=== PATIENT | female | born 1950 | race Caucasian/White ===

== ENCOUNTER 2019-01-10 09:31 | Outpatient (CLI) | payer BC, SELFPAY ==
--- NOTE | 2019-01-10 09:20 | DI.RAD_ITS ---
SYMPTOM/DIAGNOSIS: BILAT KNEE PAIN RIGHT KNEE: Three views were obtained. There is marked narrowing of the medial tibiofemoral cartilaginous joint space. There are very prominent hypertrophic changes of the bones of the knee most marked medially. There is subchondral sclerosis and bony remodeling of the femur and tibia at the tibiofemoral joint. CONCLUSION: Severe DJD most prominent involving medial tibiofemoral joint. Mild varus angulation noted. LEFT KNEE: Three views were obtained. There is medial femoral subluxation on the tibia with virtually complete loss of the cartilaginous joint space of the medial tibiofemoral joint. Exuberant hypertrophic spurring is noted involving all joints of the knee. CONCLUSION: Severe DJD most prominent involving medial tibiofemoral joint.
== END 2019-01-10 09:51 ==
PROVIDERS: PCP Nurse Practitioner Family; Visit Provider Student in an Organized Health Care Education/Training Program
DX: M25.562 Pain in left knee (principal); M25.561 Pain in right knee; M17.0 Bilateral primary osteoarthritis of knee; M21.161 Varus deformity, not elsewhere classified, right knee
CPT/HCPCS: 73562

== ENCOUNTER 2019-04-01 11:05 | Outpatient (REF) | payer BC, SELFPAY ==
[2019-04-01 20:35] LABS: HCT 40.7 % (36.0-46.0); HGB 13.6 g/dL (12.0-15.5); Mean Corp. HGB Concentration 33.4 g/dL (32.0-36.0); Mean Corpuscular Hemoglobin 30.1 pg (27.0-33.0); Platelet Count 252 x1000/uL (130-400); RBC 4.52 m/cumm (4.00-5.20); RBC Distribution Width 13.4 % (11.7-14.6); White Blood Cell Count 6.09 k/cumm (4.4-10.8)
[2019-04-01 20:37] LABS: ALT 36 U/L (12-78); AST 20 U/L (15-37); Albumin 3.6 g/dL (3.4-5.0); Alkaline Phosphatase 67 U/L (46-116); Anion Gap 9.1 mmol/L (3-11); BUN 26 mg/dL (7-18); Bilirubin, Total 0.4 mg/dL (0.2-1.0); CO2 26.9 mmol/L (21.0-32.0); CREATININE 1.08 mg/dL (0.55-1.02); Calcium 8.9 mg/dL (8.5-10.1); Calculated LDL 93 mg/dL; Chloride 105 mmol/L (98-107); Cholesterol 171 mg/dL (50-200); Glucose 93 mg/dL (70-100); HDL Cholesterol 54 mg/dL (40-60); Potassium 4.3 mmol/L (3.5-5.1); Sodium 141 mmol/L (136-145); Total Protein 6.6 g/dL (6.4-8.2); Triglyceride 124 mg/dL (30-150)
== END 2019-04-01 11:25 ==
LOC: NCHCN 11:05
PROVIDERS: PCP Nurse Practitioner Family; Visit Provider Nurse Practitioner Family
DX: E78.5 Hyperlipidemia, unspecified (principal); I10 Essential (primary) hypertension
CPT/HCPCS: 80053; 80061; 83721; 85027

== ENCOUNTER 2019-04-06 13:21 | Outpatient (CLI) | payer BC, SELFPAY ==
--- NOTE | 2019-04-06 11:18 | DI.RAD_ITS ---
SYMPTOMS/DIAGNOSIS: OA PONCE KNEE LEG LENGTH STUDY: The left leg measures 83 cm. The right leg measures 84 cm. Severe DJD involving both knees is demonstrated.
== END 2019-04-06 13:41 ==
PROVIDERS: PCP Nurse Practitioner Family; Visit Provider Physician Assistant
DX: M17.0 Bilateral primary osteoarthritis of knee (principal); M21.70 Unequal limb length (acquired), unspecified site
CPT/HCPCS: 77073

== ENCOUNTER 2019-05-27 09:51 | Outpatient (CLI) | payer BC, MEDICARE, SELFPAY ==
[2019-05-27 11:10] LABS: HCT 41.6 % (36.0-46.0); Mean Corp. HGB Concentration 33.7 g/dL (32.0-36.0); Mean Corpuscular Hemoglobin 29.8 pg (27.0-33.0); Mean Corpuscular Volume 88.5 fL (80-95); Mean Platelet Volume 9.9 fL (8.0-11.0); Platelet Count 272 x1000/uL (130-400); White Blood Cell Count 6.64 k/cumm (4.4-10.8)
[2019-05-27 11:52] LABS: Anion Gap 13.8 mmol/L (3-11); BUN 27 mg/dL (7-18); CO2 25.2 mmol/L (21.0-32.0); CREATININE 1.18 mg/dL (0.55-1.02); Calcium 9.2 mg/dL (8.5-10.1); Chloride 100 mmol/L (98-107); Estimated GFR 45.69 (mL/min/1.73m2); Glucose 100 mg/dL (70-100); Potassium 4.3 mmol/L (3.5-5.1); Sodium 139 mmol/L (136-145)
--- NOTE | 2019-05-29 15:52 | W.PREOPHP ---
Date of service: 05/27/19 Assessment and Plan Assessment and plan (1) Left knee DJD: Status: Chronic Assessment and plan: Left total knee replacement. Details of surgery were discussed with patient as well as risks and pertinent anatomy. All questions were answered. She also will likely undergo a right total knee replacement a few weeks after her left knee replacement when she has recovered. Qualifiers: Osteoarthritis type: primary Qualified Code(s): M17.12 - Unilateral primary osteoarthritis, left knee History of Present Illness History of Present Illness Chief Complaint: Left knee pain Narrative: María is a 69-year-old female who comes in today for a history and physical for a left total knee replacement. She has severe arthritis of both knees, but her left is worse than her right. She has been treated with injection therapy, but this only provided very good relief for a few weeks. She has problems with ambulation, as well as getting up from a seated position. She also struggles pretty significantly with going up and down stairs. On x-ray, she has severe arthritis with complete loss of joint space especially in the medial side of both knees. Her left knee even on x-ray is worse than her right. At this point since conservative therapy is not helping including injections, she would like to move forward with a left total knee replacement, and hopefully a right total knee replacement in the near future. Pertinent Surgical Information María does state that she has stage III kidney disease on her problem list, but this is only due to high lab values noticed by her PCP. At this point the diagnosis was placed there by her PCP in order to remind them to keep an eye on her kidney function. According to the patient this is not confirmed kidney failure at this time. Patient denies history of CVA, NH, angina, asthma, COPD, liver disorders, hepatitis, bleeding disorders, diabetes, immune or thyroid disorders. No complications from anesthesia. Review of Systems Constitutional Constitutional: Denies fever(s) ENT Ears, Nose, Mouth, and Throat: Denies dizziness and Denies sore throat Cardiovascular Cardiovascular: Denies chest pain, Denies palpitations and Denies dyspnea Respiratory Respiratory: Denies cough and Denies dyspnea Gastrointestinal Gastrointestinal: Denies abdominal pain, Denies melena, Denies hematochezia, Denies diarrhea, Denies nausea and Denies vomiting Genitourinary Genitourinary: Denies hematuria and Denies dysuria Neurologic Neurologic: Denies dizziness Endocrine Endocrine: Denies palpitations PFSH Medical History Depression GERD (gastroesophageal reflux disease) (Chronic) History of alcoholism HTN (hypertension) Obesity Surgical History Colonoscopy - MAC (02/16/17) Hx of dilation and curettage (Acute) Hx of knee surgery (Acute) Right knee Hx of tonsillectomy (Chronic) Hx of tubal ligation (Chronic) Social History Smoking/Tobacco Use Status: Never Drug use: Never Current gender identity: female Meds Home Medications and Allergies Home Medications Medication Instructions Recorded Confirmed Type diclofenac-misoprostol [Arthrotec 1 ea PO TID 02/10/17 05/27/19 History 75] lisinopril 10 mg PO DAILY tab-cap 02/10/17 05/27/19 History pantoprazole 20 mg PO DAILY tab-cap 02/10/17 05/27/19 History simvastatin 80 mg PO DAILY 02/10/17 05/27/19 History zolpidem [Ambien Cr] 10 mg PO HS tab-cap 02/10/17 05/27/19 History hydrochlorothiazide 25 mg tablet 25 mg PO DAILY 01/10/19 05/27/19 History ibuprofen [Advil] 600 mg PO Q6H PRN 05/27/19 05/27/19 History Allergies Allergy/AdvReac Type Severity Reaction Status Date / Time No Known Drug Allergies Allergy Verified 05/27/19 08:58 Exam [facility] Head: normocephalic and atraumatic General nose exam: no nasal discharge Throat: uvula midline and no uvular edema Other: soft palate rises symmetrically, no erythema Eyes Conjunctivae: conjunctivae normal Sclera: sclerae normal Pupils: PERRL Resp Effort & Inspection: normal respiratory effort Auscultation: clear to auscultation bilaterally and no wheezes Cardio Rate: regular rate Rhythm: regular rhythm Heart Sounds: S1 normal, S2 normal and no murmurs GI Palpation: soft, no hepatosplenomegaly and nontender Auscultation: normal bowel sounds Results Labs Result diagrams: 05/27/19 10:58 05/27/19 10:58
== END 2019-05-27 10:11 ==
PROVIDERS: PCP Nurse Practitioner Family; Visit Provider Student in an Organized Health Care Education/Training Program
DX: M25.562 Pain in left knee (principal); M17.12 Unilateral primary osteoarthritis, left knee; Z01.812 Encounter for preprocedural laboratory examination; Z01.818 Encounter for other preprocedural examination; I10 Essential (primary) hypertension; K21.9 Gastro-esophageal reflux disease without esophagitis
CPT/HCPCS: 36415; 80048; 85027; NC

== ENCOUNTER 2019-05-31 08:02 | Inpatient (IN) | payer BC, MEDICARE, SELFPAY ==
[2019-05-27 10:16] VITALS: BP 135/80; PULSE 66; RESP 16; TEMP 36.5; O2SAT 96
[2019-05-31] VITALS (13 sets, daily range): BP systolic 89–137; BP diastolic 56–76; PULSE 50–73; RESP 8–20; TEMP 35.3–36.7; O2SAT 94–99
[2019-05-31] MEDS: Gabapentin 300 MG CAP PO (08:35)
[2019-05-31] MEDS: Lactated Ringers 1,000 ML 80 ML IV ×2 (08:36→16:05)
[2019-05-31] MEDS: Celecoxib 200 MG CAP 400 MG PO (08:36)
[2019-05-31] MEDS: Acetaminophen 500 MG TAB 1000 MG PO ×3 (08:36→19:50)
[2019-05-31] MEDS: Bupivacaine 0.25% Pres-Free 30 ML VIAL ×2 (09:20→11:27)
[2019-05-31] MEDS: ceFAZolin 3,000 MG in Normal Saline 100 ML 200 MG IVPB (09:48)
[2019-05-31] MEDS: Normal Saline 20 ML VIAL (11:27)
[2019-05-31] MEDS: Ketorolac 30 MG/ML VIAL (11:27)
[2019-05-31] MEDS: Bupivacaine LIPOSOME/PF 133 MG/10 ML VIAL IJ (11:27)
--- NOTE | 2019-05-31 16:04 | IN_ITS ---
Date of service: 05/30/19 Time of Service: 14:32 PT Notes Inpatient Physical Therapy Evaluation Date: 05/31/2019 Referring Doctor: Gunnar Purvis MD PT Orders: PT CONSULT: Limited ability Precautions: Fall. Standard. WBAT on left LE. Patient Profile/Admitting Diagnosis: Patient is a 69-year-old female with primary unilateral osteoarthritis S/P L knee total arthroplasty on POD 0. PMHX: Medicall History Depression GERD (gastroesophageal reflux disease) (Chronic) History of alcoholism HTN (hypertension) Obesity Surgical History Colonoscopy - MAC (02/16/17) Hx of dilation and curettage (Acute) Hx of knee surgery (Acute) Right knee Hx of tonsillectomy (Chronic) Hx of tubal ligation (Chronic) Social History/Home Situation: Patient lives with in a one floor house with three steps to enter and a rail on the right side going up. She also has 6 steps to negotiate to reach the living room of her house with B rails. She is indepen dent with all aspects of ADLs without the need for an AD or adaptive equipment. 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 Equipment Owned/DME: [facility] Subjective: Patient is agreeable to a PT consult. She reports being lightheaded during ambulation activity. She states that she has enough family members who will be able to help once she goes home. She denies any headache, chest pain, and nausea during mobility. She looks forward to going back to work once she is cleared to do so. Objective: General Observation: Patient is seen resting in bed in conversation with her daughter and grandaughters upon arrival of student PT and TRIPLE DRUM OPERATOR. Cryocuff on L knee. IV in L UE. CHLOE wraps on L knee. TEDS on R leg. Grace catheter in place. Mental Status: Alert and oriented x 4 as to person, place, time, and purpose Pain: 2/10 at rest and with movement and weight bearing ROM: Right Lower Extremity: Hip flexion WFL. Hip abduction WFL. Knee flexion WFL. Ankle dorsiflexion WFL. Ankle plantarflexion WFL. Left Lower Extremity: Hip flexion WFL. Hip abduction WFL. Knee flexion allolws up to 75 degrees in standing. Ankle dorsiflexion WFL. Ankle plantarflexion WFL. Strength: Right Lower Extremity: Hip flexors 5/5. Hip abductors 5/5. Knee flexors 5/5. Knee extensors 5/5. Ankle dorsiflexors 5/5. Ankle plantarflexors 5/5. Left Lower Extremity:Hip flexors 4/5. Hip abductors 5/5. Knee flexors 4/5. Knee extensors 4/5. Ankle dorsiflexors 5/5. Ankle plantarflexors 5/5. Sensation: Intact as to pain and pressure on bilateral lower extremities. Bed Mobility/Transfers: Rolling SBA Supine to sit SBA Sit to supine SBA Sit to stand CGA Stand to sit CGA Bed to chair CGA Chair to bed CGA Gait: Patient was able to tolerate level surface ambulation of about 60 feet without rest using the FWW with CGA of student PT and SBA of PT for IV pole management and wheelchair follow. Patient did complain of mild lightheadedness that subsided with rest. Balance: Static Sitting: Normal Dynamic Sitting: Normal Static Standing: Fair Dynamic Standing: Fair Special Tests: Mobility Limitations Standardized Measure [facility]-P[facility] 6 clicks Basic Mobility Inpatient Short Form: Raw Score: 17 CMS Score: 51% deficit Informed Consent/Education: Patient instructed in purpose of PT consult and plan of care. She was also instructed on muscle setting exercises for gluteal and quadriceps on B sides along with ankle pumping to be done every hour. Assessment: 69-year-old female with primary unilateral osteoarthritis S/P L knee total arthroplasty on POD 0. Patient presents with clinical signs and symptoms consistent with current/admitting diagnoses that have resulted to mobility limitations, gait instability, generalized weakness, and impairment of motor control as demonstrated by the following impairment level findings: 1. Decreased strength to L LE major muscle groups 2. Impaired sitting/standing balance 3. Impaired activity tolerance 4. Limitation of joint range of motion in L knee Impairments are contributing to the following functional limitations: 1. Dependent bed mobility skills 2. Increased dependence with transfers 3. Inability to safely ambulate without assistive device and physical assistance 4. Increase completion time for mobility ADL performance 5. Increased fall risk 6. Inability to negotiate steps alone safely Patient is assessed as a [id number] moderate complexity based on the following: History: Patient is a 69-year-old female patient with primary unilateral osteoarthitis of L knee S/P L knee total arthroplasty on POD 0. Examination: Demonstrable impairment in strength, balance, and range of motion with underlying impairments and functional limitations as documented above Presentation:Evolving Decision Makin moderate complexity Goals: Goals X1 week 1. Supine-Sit independent 2. Sit-Supine independent 3. Sit-Stand independent 4. Stand-Sit independent 5. Bed-Chair independent 6. Chair-Bed independent 7. Independent gait on level surface with use of least restrictive device for at least 300 feet without report of pain nor dyspnea 8. Independent stair negotiation while holding onto bilateral rails for at least 10 steps without report of pain nor dyspnea 9. Independent with home exercise program 10. Good static and dynamic standing balance/tolerance Plan of Care/Treatment Plan: 1-2x/day, 7 days/week x 1 week. Plan of care has been reviewed with the TRIPLE DRUM OPERATOR providing the service under Physical Therapy direction. Initiate Physical Therapy intervention for strengthening, bed mobility, transfers, gait, stairs, balance training, use of assistive device. DISCHARGE RECOMMENDATIONS: May benefit from skilled physical therapy services according to orthopedic surgeon's timeline recommendations. Patient will be educated and trained on home exercise program per TKA exercise protocol in preparation for outpatient physical therapy services. TREATMENT CODE/TIME: 9716 2 x 34 minutes beginning at 14:32 PM. Thank you very much for this referral. Darlin Comer PT, DPT, CLT [facility]
[2019-05-31] MEDS: oxyCODONE 5 MG TAB PO ×3 (16:28→21:39)
--- NOTE | 2019-05-31 16:43 | ROE_ITS ---
Date of service: 05/31/19 Time of Service: 13:43 Operative Note Operative Note DATE OF PROCEDURE: 05/31/19 PRE-OP DIAGNOSIS: Left Knee DJD with deformity POST-OP DIAGNOSIS: same PROCEDURE: Left Total Knee Arthroplasty with Intraoperative Navigation SURGEON: Gunnar Purvis SURGICAL APPLIANCES SALESPERSON: Nilda Marquez ANESTHESIA: regional and spinal ESTIMATED BLOOD LOSS: 350 PATHOLOGY: none sent TOURNIQUET TIME: 35 COMPLICATIONS: None Patient was transported to: PACU Patient's condition: stable Implants: 1. Depuy Attune Posterior Stabilized Femoral Component, Size 7 2. Depuy Attune Fixed Platform Tibial Component, Size 5 3. Depuy Attune 7 x 14 fixed, Stabilized Poly 4. Depuy Attune Patellar Component, Size 38 Indications: I have seen María in clinic for symptoms of knee arthritis, confirmed with radiographic findings. She has exhausted nonoperative methods and was having significant limitations in daily function and desired better function and less pain. I discussed the technical details of a knee replacement. I explained the risks of the procedure to include, but not limited to, bleeding, infection, pain, stiffness, fracture, damage to nerves and vessels, damage to muscles and tendons, loosening, need for repeat procedure, blood clot and cardiopulmonary demise. Despite these risks, she elected to proceed. Findings: There was significant signs of arthritis throughout the knee. There was notable deformity of the medial tibia sloping even more medial than expected. Large osteophytes were encountered throughout all compartments of the knee especially medially and posteriorly. Procedure Description: María was greeted in the preoperative holding area where the correct side was identified and marked. The consent was reviewed with the patient and signed. The history and physical was updated. All questions were answered. Preoperative mediacations were administered: Acetaminophen 1000mg, Celebrex 400mg, and gabapentin 300mg. An adductor canal block was then administered by the anesthesia team in the PACU. María was taken back to the operating room. A spinal anesthestic was then administered. The patient was placed into the supine position on the operating room table. A nonsterile tourniquet was placed high onto the leg but only used for cementing. Posts were placed for positioning during the procedure. All bony prominences were well padded. Prophylactic antibiotics in the form of cefazolin were administered. 1g of Tranxemic Acid was given intravenously within 30 minutes of incision. The left leg was then prepped with Chloraprep and draped in a standard fashion with impervious stockinette and extremity drape with Iodine impregnated skin protection. A timeout to confirm correct identity, side and site, procedure, allergies, anesthesia, and medical concerns was performed. With the knee in some flexion, a midline incision was made overlying the knee. Full thickness skin flaps were raised once the extensor mechanism was encountered. These were raised medially and laterally. Any bleeding was controlled with electrocautery. Once the extensor mechanism was fully exposed, a medial parapatellar arthrotomy was performed in a flexed position. All bleeding from the arthrotomy and the geniculate arteries was coagulated. A medial subperiosteal peel was performed with electrocautery to the midcoronal plane. Due to the significant varus deformity the entire medial tibial plateau was exposed. The fat pad was removed while keeping the patellar tendon protected. The anterior distal femur synovium was removed for later visualization. The ACL and PCL were resected and the anterior horn of the lateral meniscus was transected. The knee was then flexed with the patella everted. Large osteophytes from the tibia were removed. Large osteophytes from the femur were removed. A single starting pin was then placed 1cm anterior to the PCL insertion and the notch in the direction of the femoral head. The OrthoAlign device was applied over the pin. It was oriented to be in line with the epicondylar axis and the trochlear groove. It was then pinned into place. The navigation computer was then turned on and calibrated. The distal femur cut was set at 0 degrees varus/valgus and 2.5 degrees flexion. The distal femur cutting guide then was positioned for a 11 mm cut. The distal femur was cut with an oscillating saw while protecting the soft tissues. The tibia was then addressed. The OrthoAlign device was placed over the tibial tubercle and medial tibia and secured into position. Once again, OrthoAlign was calibrated and then set for a 0 degree varus/valgus cut and 3 degrees of posterior slope. With this locked into position, the cut thickness stylus was used to assess cut thickness. The medial side, most involved side, was set for a 3mm cut. This was then held in position and pinned into place with 2 additional pins and a cross pin for stability. The medial and lateral collateral ligaments were protected and the cut was performed. With this completed, it was assessed and noted to be of appropriate dimensions. It was thicker laterally and I had initially planned but seem to adequately re-create the parallel surface of the tibia to match the mechanical axis perpendicularly. The guide and OrthoAlign was removed. A spacer block was inserted and the knee was brought into extension. The 12 mm spacer block provided full extension, without hyperextension and with stability of both the medial and lateral collateral ligaments was assessed. The pins from the femur and the tibia were then removed. The distal femur was then sized. The anterior stylus was placed onto the lateral ridge of the anterior femur. This indicated a size 7 femur. The external rotation of the guide was adjusted to 3 degrees to match the epicondylar axis, perpendicular to [place]s line. The 4-in-1 cutting guide was the placed. The posterior medial femur cut was evaluated and appeared of good thickness. The spacer block was inserted underneath the cutting guide and stability was confirmed in 90 degrees of flexion. An tima wing was used to confirm appropriate position of the anterior cut to avoid notching. This cutting guide was ensured to be flush on the cut surface and then pinned into place with headed pins. While protecting the soft tissues, quad tendon, and collateral ligaments, the anterior and posterior cuts were performed with a saw. The central two pins were removed and the posterior and anterior chamfers were cut next. The notch-cutting guide was placed. This was pinned to lateralize the femoral component as much as possible while keeping it flush on the cut surface. This was then pinned into position. A reciprocating saw was used to make the notch cut. A rasp smoothed the cut surfaces. A trial posterior stabilized femoral component was then inserted, impacted down to the cut surfaces, and the lug holes were drilled. A provisional trial tibial component was placed and the knee was brought through range of motion. There was noted to be excellent extension with some very mild gapping medially and laterally in flexion and extension. Terminal flexion was limited by calf thigh impingement at about 115 degrees. The patella was tracking without thumbs. The tibial cut surface was fully exposed. The medial and lateral menisci were removed. The tibia was then sized as a 5. The tibia had been previously marked during trialing to correspond to the center of the tibial component to help with rotation. The trial was aligned to this nilda, approximately rotated to the medial 1/3rd of the tibial tubercle. The trial was pinned into place. The tibia was prepared with a reamer and a keel punch. The knee was then brought into extension and the patella was measured as 35 mm. Using the patellar clamp and cut guide, this was resected to a flat surface with at least 13mm of thickness remaining. The size 38 mm patella fit the best. This was oriented and then clamped into position. The lugs were drilled. The trial components were removed. The final components, except for the polyethylene were opened on the back table. The periosteal and capsular tissues, especially posteriorly, around the knee were then systematically injected with a periarticular cocktail consisting of 50cc 0.25% Marcaine, 30mg Ketorolac, 20cc of Exparal and 50cc of injectable saline. The tourniquet was then inflated to 275mmHg. The knee was thoroughly irrigated with a pulse lavage and dried. On the back table, with the implants opened, the cement was mixed. 2 batches of antibiotic laden cement were prepared with vacuum assistance. After the cement was ready a small amount was placed on to the back side of the tibial component at the keel. A small amount was placed onto the posterior flange of the femur. Cement was manual pressurized and impregnated into the cut surface of the tibia. The tibial component was then inserted into the cut surface and impacted into position. Excess cement was removed and the component was reimpacted. Again, excess cement was removed and our attention was then turned to the femur. The femoral cut surface was once again dried and cement was manually impacted into the cut surface. The femoral component was lined with the lug holes and impacted. Excess cement was removed. It was ensured to be down against the cut surface. The trial polyethylene was then inserted and the leg was brought out into full extension for the duration of the cement curing process, approximately 15min. Cement was lastly manually impacted into the cut surface of the patella and the patellar button was clamped into position and held. During this process attention was turned to the gutters of the knee and for all interfaces for any e xcess cement. After the cement had finally cured, approximately 15min, the clamp was removed from the patella and the knee was taken through range of motion. A size 14 mm polyethylene component provided the best range of motion and stability with less than 2mm gapping with medial and lateral stress and full extension without significant hyperextension. The patella was tracking with a no-thumbs technique. The trial poly was removed and once again the knee was checked for any loose, excess, or errant cement. The poly component was then inserted and impacted into position after cleaning and drying the tibial tray. The capsule was then reapproximated with a No. 1 Vicryl at multiple locations. The capsule was finally closed with a No. 2 Stratafix, barbed suture. The tourniquet was then released and the arthrotomy appeared watertight without significant bleeding. The second dosing of 1g TXA was started. Deep tissues were then reapproximated with 0 Vicryl and 2-0 Vicryl. The skin was closed with a running 3-0 Monocryl in a subcuticular fashion. This was reinforced with skin glue. A Mepilex silver dressing was applied along with a [id number] CHLOE wrap. A CryoCuff was applied. María was transferred to the hospital bed without difficulty an suffering no apparent complication. María has a good prognosis. Physical therapy will start today and without restrictions, weight-bearing as tolerated. Aspirin 81mg BID will be used for DVT prophylaxis.
--- NOTE | 2019-05-31 18:19 | NUR.NOTE ---
Nursing Note: Pt to MS floor at 1310. Transferred via hover mat from stretcher to bed. VSS, A&Ox3. Family at bedside. Pt oriented to MS floor, call almaguer, phone, etc. Call almaguer within reach. RN will continue to monitor.
[2019-05-31] MEDS: Celecoxib 200 MG CAP PO (19:50)
[2019-05-31] MEDS: Aspirin E.C. 81 MG TABEC PO (19:50)
[2019-05-31] MEDS: Simvastatin 40 MG TAB 80 MG PO (19:50)
[2019-06-01] MEDS: oxyCODONE 5 MG TAB PO ×3 (02:25→10:23)
[2019-06-01 04:05] VITALS: BP 99/54; PULSE 65; RESP 18; TEMP 36.8; O2SAT 95
[2019-06-01] MEDS: Lactated Ringers 1,000 ML 80 ML IV (04:07)
[2019-06-01 08:15] VITALS: BP 108/70; PULSE 70; RESP 20; TEMP 36.5; O2SAT 95
[2019-06-01] MEDS: Acetaminophen 500 MG TAB 1000 MG PO (09:35)
[2019-06-01] MEDS: Aspirin E.C. 81 MG TABEC PO (09:35)
[2019-06-01] MEDS: Docusate Sodium 100 MG CAP PO (09:35)
[2019-06-01] MEDS: Pantoprazole 40 MG TABCR PO (09:35)
[2019-06-01] MEDS: Celecoxib 200 MG CAP PO (09:36)
[2019-06-01] MEDS: Lisinopril 5 MG TAB 10 MG PO (09:36)
[2019-06-01] MEDS: hydroCHLOROthiazide 25 MG TAB PO (09:36)
--- NOTE | 2019-06-01 10:05 | W.PM.DS.N ---
Date of service: 06/01/19 Time of Service: 10:05 DS: Diagnosis Discharge Diagnosis (1) Left knee DJD: Status: Chronic Discharge Plan Disposition Patient Disposition: HOME Condition: Good Discharge Details Reason For Visit: LEFT KNEE DJD Admit Date/Time: 05/31/19 08:02 Admit Provider: Gunnar Purvis Attending Provider: Gunnar Purvis Primary Care Provider: Lorenzo Batres Hospital Course Hospital Course: Patient was admitted to the medical/surgical floor following the procedure. It was tolerated well without any notable medical, surgical, or anesthetic complications. Mobilization began postoperatively. The barboza catheter was removed and voiding spontaneously. Vitals were stable. Physical therapy worked with the patient and was cleared for discharge home. No acute medical issues. Home Meds and New Rx's Prescriptions: New celecoxib 200 mg capsule 200 mg PO BID PRN (Reason: pain) Qty: 60 RF: 1 aspirin 81 mg tablet,delayed release (DR/EC) 81 mg PO BID Qty: 60 RF: 0 acetaminophen 500 mg tablet 1,000 mg PO Q8H PRN (Reason: pain) Qty: 90 RF: 3 oxycodone 5 mg tablet 5 mg PO Q4H Qty: 15 RF: 0 Continued hydrochlorothiazide 25 mg tablet 25 mg PO DAILY RF: 0 simvastatin 80 MG tablet 80 mg PO DAILY RF: 0 pantoprazole 20 MG tablet,delayed release (DR/EC) 20 mg PO DAILY RF: 0 lisinopril 5 MG tablet 10 mg PO DAILY RF: 0 zolpidem [Ambien CR] 6.25 MG tablet,ext release multiphase 10 mg PO HS RF: 0 Discontinued diclofenac-misoprostol [Arthrotec 75] 1 EACH tablet,IR,delayed rel,biphasic 1 ea PO TID RF: 0 ibuprofen [Advil] 200 mg Tablet 600 mg PO Q6H PRNRF: 0 Discharge Instructions Additional Instructions: Dr. Purvis?s Total Knee Discharge Instructions Activity: The most important activity is to walk. You should try to take short walks a few times a day. It is important that when resting you work on keeping the knee straight. Avoid putting a pillow behind the knee as this will encourage flexion. Work on range of motion exercises as provided by Physical Therapy. - Start outpatient physical therapy within 2 weeks. - You should wear the HAO hose on both legs for 2 weeks. Dressing: Keep the surgical dressing in place for at least one week. After the first week it may be removed and replace with light gauze and tape or nothing. It may get wet after 3 days but avoid soaking the dressing. If it gets wet, just lightly pat dry. Medications: - You should take Tylenol and anti-inflammatory Celebrex as your primary pain control medications - You have been prescribed a stronger pain medication Oxycodone for breakthrough pain, take as needed as prescribed. - You should continue your stomach acid reduction agent Pantoprozole to help reduce stomach acid and reflux. - You will be taking Aspirin 81mg twice a day for DVT prevention unless instructed otherwise. - If you have constipation you should take Colace or Miralax (both [id number]). It takes most people 3-4 days to have a bowel movement. Follow-up: 2 weeks Stand Alone Forms: Nursing Discharge Form Referrals: Gunnar Purvis MD [ [facility] STAFF PHYSICIAN] - [facility] [Provider Group] (F/U within 2 weeks for L TKA) Activity:: Activity as Tolerated Equipment/Supplies:: Walker Diet:: As Tolerated Discharge Orders Discharge Orders: Discharge Order (Routine); Ordered 06/01/19 Ordered By: Gunnar Purvis DS: Summary Status at Discharge Functional status at discharge: uses cane/walker Overall status at discharge: patient is progressing back to baseline Mental Status: mental status grossly normal Speech and Movement: speech and movement normal Mood: congruent mood Affect: normal affect Exam Psych Mental Status: mental status grossly normal Speech and Movement: speech and movement normal Mood: congruent mood Affect: normal affect DS: Data Vitals/I&O Vitals and I&O: Vital Signs Temperature 36.5 C 06/01/19 08:15 Temperature Source Skin 06/01/19 08:15 Pulse 70 06/01/19 08:15 Pulse Rhythm Regular 05/31/19 20:55 Respiratory Rate 20 06/01/19 08:15 Respiratory Effort Non-Labored 05/31/19 20:55 Respiratory Depth Normal 05/31/19 20:55 Respiratory Pattern Normal 05/31/19 20:55 Blood Pressure 108/70 06/01/19 08:15 Pulse Oximetry 95 06/01/19 08:15 Respiratory End-tidal CO2 33 05/31/19 12:50 Oxygen Delivery Method Room Air 06/01/19 08:15 Oxygen Flow Rate 0 06/01/19 08:15 Pain Level 8 06/01/19 09:35 Comment 06/01/19 08:15 Intake & Output 05/31/19 05/31/19 06/01/19 11:59 23:59 11:59 Intake Total 160 / 2260 2100 / 2260 1062.667 / 1062.667 Output Total 550 / 1325 775 / 1325 Balance -390 / 935 1325 / 935 1062.667 / 1062.667 Weight 105.6 kg Intake: IV 160 / 1320 1160 / 1320 1062.667 / 1062.667 Oral 940 / 940 Output: Urine 150 / 925 775 / 925 Estimated Blood Loss 400 / 400 Other: Urine Color Yellow Pale Yellow Urine Appearance Clear Clear Emesis Description None PFSH Social History Smoking/Tobacco Use Status: Never Drug use: Never Current gender identity: female
--- NOTE | 2019-06-01 10:51 | PT.INTREAT ---
Date of service: 06/01/19 Time of Service: 10:51 PT Notes Inpatient Physical Therapy Treatment Note [facility] Date: 06/01/19 PRECAUTIONS: WBAT L SUBJECTIVE: María states that she is having knee pain, however is agreeable to participating in PT this morning. She plans to go home later today. OBJECTIVE: PAIN: Patient rates knee pain as 5/10 prior to PT, and as 8/10 following PT BED MOBILITY/TRANSFERS Supine-sit: I with HOB flat Sit-supine: I with HOB flat Sit-stand: S Stand-sit: S GAIT Assistive Device: FWW Weight bearing: WBAT L Assist: SBA-S Distance: 100' x2 THEREX: Patient completed a LE strengthening and stabilization program, in a supine position, as per flow sheet. Patient ends with cryocuff to L knee. STAIRS: Up/down 3x4 and 2x6 using B rails and a step-to pattern with supervision; up/down 3x4 and 2x6 using 1 rail/HOME AND FAMILY LIVING PROFESSOR x1 and a step-to pattern with CGA ASSESSMENT: Patient tolerated session with some c/o L knee pain. She was able to tolerate a progression in gait distance with FWW support and supervision. She would benefit from continued gait and transfer training, as well as strengthening for improved mobility. PLAN: Continue with PT's POC TREATMENT CODE/TIME: Session 1: 30 minutes; 51117, [id number]
--- NOTE | 2019-06-01 11:53 | PT.INNT ---
Date of service: 06/01/19 Time of Service: 11:53 PT Notes 06/01/19 Review HEP per pt request, cryo cuff use and sleeping positions. Pt understands to contact our office if she has further questions. No charge Teresa Ling PTA Clinic location: [facility] [place], [place]
== END 2019-06-01 12:07 | disposition home or self-care (01) | DRG 470 ==
LOC: PDS 08:02 → MS 12:48
PROVIDERS: Admitting Provider Student in an Organized Health Care Education/Training Program; PCP Nurse Practitioner Family; Visit Provider Student in an Organized Health Care Education/Training Program
PROC: 0SRD0J9 Replacement of Left Knee Joint with Synthetic Substitute, Cemented, Open Approach (ICD-10-PCS; CPT 27447; principal; 2019-05-31 10:00)
DX: M17.12 Unilateral primary osteoarthritis, left knee (principal); M25.562 Pain in left knee; Z96.652 Presence of left artificial knee joint; K21.9 Gastro-esophageal reflux disease without esophagitis; I10 Essential (primary) hypertension; E66.9 Obesity, unspecified; F32.9 Major depressive disorder, single episode, unspecified
CPT/HCPCS: 27447; 20985; 76942; 97110; 97162; 97530; NC; J0690; J1885; J2370; J2405

== ENCOUNTER 2019-06-16 12:44 | Outpatient (CLI) | payer BC, MEDICARE, SELFPAY ==
--- NOTE | 2019-06-16 10:32 | DI.RAD_ITS ---
EXAM: XR KNEE LT 1V INDICATION: f/u L TKA. COMPARISON: XR knee LT 3V AP,lat,velia from 01/10/2019 TECHNIQUE: 2D digital imaging was performed. FINDINGS: Single lateral view was obtained and shows total knee joint replacement in position. The components appear well seated. IMPRESSION:
--- NOTE | 2019-06-16 10:32 | DI.RAD_ITS ---
EXAM: XR STANDING ALIGNMENT INDICATION: f/u LT KA. COMPARISON: XR standing alignment from 04/06/2019 TECHNIQUE: 2D digital imaging was performed. FINDINGS: AP views of both lower extremities were obtained for leg length determination. Mild degenerative dominique nges noted involving both hips. Left total knee joint replacement noted in position. Severe DJD of the right knee particularly involving medial tibiofemoral joint. IMPRESSION:
== END 2019-06-16 13:04 ==
PROVIDERS: PCP Family Medicine; Visit Provider Student in an Organized Health Care Education/Training Program
DX: M17.12 Unilateral primary osteoarthritis, left knee (principal); Z96.652 Presence of left artificial knee joint; M16.0 Bilateral primary osteoarthritis of hip; M17.11 Unilateral primary osteoarthritis, right knee
CPT/HCPCS: 73560; 77073

== ENCOUNTER 2019-06-27 12:01 | Outpatient (CLI) | payer BC, SELFPAY ==
[2019-06-27 12:30] LABS: HCT 36.4 % (36.0-46.0); HGB 11.8 g/dL (12.0-15.5); Mean Corp. HGB Concentration 32.4 g/dL (32.0-36.0); Mean Corpuscular Hemoglobin 29.3 pg (27.0-33.0); Mean Corpuscular Volume 90.3 fL (80-95); Mean Platelet Volume 9.8 fL (8.0-11.0); Platelet Count 290 x1000/uL (130-400); RBC 4.03 m/cumm (4.00-5.20); RBC Distribution Width 13.1 % (11.7-14.6); White Blood Cell Count 6.32 k/cumm (4.4-10.8)
[2019-06-27 13:42] LABS: Anion Gap 10.8 mmol/L (3-11); BUN 27 mg/dL (7-18); CO2 25.2 mmol/L (21.0-32.0); CREATININE 0.88 mg/dL (0.55-1.02); Calcium 9.4 mg/dL (8.5-10.1); Chloride 105 mmol/L (98-107); Glucose 84 mg/dL (70-100); Potassium 4.3 mmol/L (3.5-5.1); Sodium 141 mmol/L (136-145)
== END 2019-06-27 12:21 ==
PROVIDERS: PCP Family Medicine; Visit Provider Student in an Organized Health Care Education/Training Program
DX: M25.561 Pain in right knee (principal); M17.11 Unilateral primary osteoarthritis, right knee; Z01.812 Encounter for preprocedural laboratory examination; Z01.818 Encounter for other preprocedural examination; I10 Essential (primary) hypertension; K21.9 Gastro-esophageal reflux disease without esophagitis; E66.9 Obesity, unspecified
CPT/HCPCS: 36415; 80048; 85027

== ENCOUNTER 2019-06-28 05:55 | Inpatient (IN) | payer BC, MEDICARE, SELFPAY ==
--- NOTE | 2019-06-02 08:29 | INDS_ITS ---
Date of service: 06/02/19 PT Notes Inpatient Physical Therapy Discharge Summary Dates: 06/02/2019 Dates of Service: 05/31/2019 and 06/01/2019 This is a clinical summary of care provided on the duration of dates listed above. No charge was made in the completion of this documentation. Referring Doctor: Gunnar Purvis MD PT Orders: PT CONSULT: Limited ability Precautions: Fall. Standard. WBAT on left LE. Patient Profile/Admitting Diagnosis: Patient is a 69-year-old female with primary unilateral osteoarthritis S/P L knee total arthroplasty on POD 0. PMHX: Medicall History Depression GERD (gastroesophageal reflux disease) (Chronic) History of alcoholism HTN (hypertension) Obesity Surgical History Colonoscopy - MAC (02/16/17) Hx of dilation and curettage (Acute) Hx of knee surgery (Acute) Right knee Hx of tonsillectomy (Chronic) Hx of tubal ligation (Chronic) Social History/Home Situation: Patient lives with in a one floor house with three steps to enter and a rail on the right side going up. She also has 6 steps to negotiate to reach the living room of her house with B rails. She is independent with all aspects of ADLs without the need for an AD or adaptive equipment. 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 Equipment Owned/DME: FWW Subjective: NT. Please check GROUP SALES REPRESENTATIVE notes as of 06/01/2019. Objective: General Observation: NT. Please check GROUP SALES REPRESENTATIVE notes as of 06/01/2019. Mental Status: NT. Please check GROUP SALES REPRESENTATIVE notes as of 06/01/2019. Pain: NT. Please check GROUP SALES REPRESENTATIVE notes as of 06/01/2019. ROM: Right Lower Extremity: Hip flexion WFL. Hip abduction WFL. Knee flexion WFL. Ankle dorsiflexion WFL. Ankle plantarflexion WFL. Left Lower Extremity: Hip flexion WFL. Hip abduction WFL. Knee flexion allolws up to 75 degrees in standing. Ankle dorsiflexion WFL. Ankle plantarflexion WFL. Strength: Right Lower Extremity: Hip flexors 5/5. Hip abductors 5/5. Knee flexors 5/5. Knee extensors 5/5. Ankle dorsiflexors 5/5. Ankle plantarflexors 5/5. Left Lower Extremity:Hip flexors 4/5. Hip abductors 5/5. Knee flexors 4/5. Knee extensors 4/5. Ankle dorsiflexors 5/5. Ankle plantarflexors 5/5. Sensation: Intact as to pain and pressure on bilateral lower extremities. Bed Mobility/Transfers: Rolling I Supine to sit I Sit to supine I Sit to stand S Stand to sit S Bed to chair S Chair to bed S Gait: Patient was able to tolerate level surface ambulation of about 100 feet x 2 without rest using the FWW with SBA. Patient is also able to negotiate steps with supervision for three four-inch steps and 2 6-inch steps while holding onto rail. Balance: Static Sitting: Normal Dynamic Sitting: Normal Static Standing: Fair Dynamic Standing: Fair Assessment: 69-year-old female with primary unilateral osteoarthritis S/P L knee total arthroplasty on POD 0. Patient presents with clinical signs and symptoms consistent with current/admitting diagnoses that have resulted to mobility limitations, gait instability, generalized weakness, and impairment of motor control as demonstrated by the following impairment level findings: 1. Decreased strength to L LE major muscle groups 2. Impaired sitting/standing balance 3. Impaired activity tolerance 4. Limitation of joint range of motion in L knee Impairments are contributing to the following functional limitations: 1. Dependent bed mobility skills 2. Increased dependence with transfers 3. Inability to safely ambulate without assistive device and physical assistance 4. Increase completion time for mobility ADL performance 5. Increased fall risk 6. Inability to negotiate steps alone safely Goals: Goals X1 week 1. Supine-Sit independent MET 2. Sit-Supine independent MET 3. Sit-Stand independent NOT MET 4. Stand-Sit independent NOT MET 5. Bed-Chair independent NOT MET 6. Chair-Bed independent NOT MET 7. Independent gait on level surface with use of least restrictive device for at least 300 feet without report of pain nor dyspnea NOT MET 8. Independent stair negotiation while holding onto bilateral rails for at least 10 steps without report of pain nor dyspnea NOT MET 9. Independent with home exercise program NOT MET 10. Good static and dynamic standing balance/tolerance NOT MET DISCHARGE RECOMMENDATIONS: May benefit from skilled physical therapy services according to orthopedic surgeon's timeline recommendations. Patient will be educated and trained on home exercise program per TKA exercise protocol in preparation for outpatient physical therapy services. TREATMENT CODE/TIME: NC. Thank you very much for this referral. Darlin Coemr PT, DPT, CLT [facility]
[2019-06-28] VITALS (20 sets, daily range): BP systolic 101–135; BP diastolic 52–74; PULSE 67–78; RESP 12–18; TEMP 36–36.6; O2SAT 96–100
[2019-06-28] MEDS: Lactated Ringers 1,000 ML 80 ML IV ×2 (06:44→09:59)
[2019-06-28] MEDS: Acetaminophen 500 MG TAB 1000 MG PO ×3 (06:45→21:11)
[2019-06-28] MEDS: Celecoxib 200 MG CAP 400 MG PO (06:45)
[2019-06-28] MEDS: Gabapentin 300 MG CAP PO ×2 (06:45→21:11)
[2019-06-28] MEDS: Bupivacaine 0.25% Pres-Free 30 ML VIAL ×2 (07:30→09:26)
[2019-06-28] MEDS: ceFAZolin 3,000 MG in Normal Saline 100 ML 200 MG IVPB (07:39)
[2019-06-28] MEDS: Ketorolac 30 MG/ML VIAL (09:26)
[2019-06-28] MEDS: Normal Saline 50 ML (09:26)
--- NOTE | 2019-06-28 12:01 | ROE_ITS ---
Date of service: 06/28/19 Time of Service: 10:01 Operative Note Operative Note DATE OF PROCEDURE: 06/28/19 PRE-OP DIAGNOSIS: Right Knee DJD POST-OP DIAGNOSIS: same PROCEDURE: Right Total Knee Arthroplasty with Intraoperative Navigation SURGEON: Gunnar Purvis HOUSING COORDINATOR: Nilda Marquez ANESTHESIA: regional and spinal ESTIMATED BLOOD LOSS: 250 PATHOLOGY: none sent TOURNIQUET TIME: 31 COMPLICATIONS: None Patient was transported to: PACU Patient's condition: stable Implants: 1. Depuy Attune Posterior Stabilized Femoral Component, Size 6 narrow 2. Depuy Attune Fixed Platform Tibial Component, Size 4 3. Depuy Attune 6x7mm Fixed, Stabilized Poly 4. Depuy Attune Patellar Component, Size 35 Indications: I have seen María in clinic for symptoms of knee arthritis, confirmed with radiographic findings. María has exhausted nonoperative methods and was having significant limitations in daily function and desired better function and less pain. She had a successful replacement on the left side. I discussed the technical details of a knee replacement. I explained the risks of the procedure to include, but not limited to, bleeding, infection, pain, stiffness, fracture, damage to nerves and vessels, damage to muscles and tendons, loosening, need for repeat procedure, blood clot and cardiopulmonary demise. Despite these risks, she elected to proceed. Findings: There was significant signs of arthritis throughout the knee. Large osteophytes were present throughout, especially posteriorly. Procedure Description: María was greeted in the preoperative holding area where the correct side was identified and marked. The consent was reviewed with the patient and signed. The history and physical was updated. All questions were answered. Preoperative mediacations were administered: Acetaminophen 1000mg, Celebrex 400mg, and Gabapentin 300mg. An adductor canal block was then administered by the anesthesia team in the PACU. María was taken back to the operating room. A spinal anesthestic was then administered. The patient was placed into the supine position on the operating room table. A nonsterile tourniquet was placed high onto the leg but only used for cementing. Posts were placed for positioning during the procedure. All bony prominences were well padded. Prophylactic antibiotics in the form of Cefazolin were administered. 1g of Tranxemic Acid was given intravenously within 30 minutes of incision. The right leg was then prepped with Chloraprep and draped in a standard fashion with impervious stockinette and extremity drape with Iodine impregnated skin protection. A timeout to confirm correct identity, side and site, procedure, allergies, anesthesia, and medical concerns was performed. With the knee in some flexion, a midline incision was made overlying the knee. Full thickness skin flaps were raised once the extensor mechanism was encountered. These were raised medially and laterally. Any bleeding was controlled with electrocautery. Once the extensor mechanism was fully exposed, a medial parapatellar arthrotomy was performed in a flexed position. All bleeding from the arthrotomy and the geniculate arteries was coagulated. A medial subperiosteal peel was performed with electrocautery to the midcoronal plane. Due to the significant varus deformity the entire medial tibial plateau was exposed. The fat pad was removed while keeping the patellar tendon protected. The anterior distal femur synovium was removed for later visualization. The ACL and PCL were resected and the anterior horn of the lateral meniscus was transected. The knee was then flexed with the patella everted. Large osteophytes from the tibia were removed. Large osteophytes from the femur were removed. A single starting pin was then placed 1cm anterior to the PCL insertion and the notch in the direction of the femoral head. The OrthoAlign device was applied over the pin. It was oriented to be in line with the epicondylar axis and the trochlear groove. It was then pinned into place. The navigation computer was then turned on and calibrated. The distal femur cut was set at 0 degrees varus/valgus and 2.5 degrees flexion. The distal femur cutting guide then was positioned for a 9mm cut. The distal femur was cut with an oscillating saw while protecting the soft tissues. The tibia was then addressed. The OrthoAlign device was placed over the tibial tubercle and medial tibia and secured into position. Once again, OrthoAlign was calibrated and then set for a 0 degree varus/valgus cut and 3 degrees of posterior slope. With this locked into position, the cut thickness stylus was used to assess cut thickness. The medial side, most involved side, was set for a 2mm cut. This was then held in position and pinned into place with 2 additional pins and a cross pin for stability. The medial and lateral collateral ligaments were protected and the cut was performed. With this completed, it was assessed and noted to be of appropriate dimensions. The guide and OrthoAlign was removed. A spacer block was inserted and the knee was brought into extension. The 6mm spacer block provided full extension, without hyperextension and with stability of both the medial and lateral collateral ligaments was assessed. The pins from the femur and the tibia were then removed. The distal femur was then sized. The anterior stylus was placed onto the lateral ridge of the anterior femur. This indicated a size 6 femur. The external rotation of the guide was adjusted to 3 degrees to match the epicondylar axis, perpendicular to [place]?s line. The 4-in-1 cutting guide was the placed. The posterior medial femur cut was evaluated and appeared of good thickness. The spacer block was inserted underneath the cutting guide and stability was confirmed in 90 degrees of flexion. An tima wing was used to confirm appropriate position of the anterior cut to avoid notching. This cutting guide was ensured to be flush on the cut surface and then pinned into place with headed pins. While protecting the soft tissues, quad tendon, and collateral ligaments, the anterior and posterior cuts were performed with a saw. The central two pins were removed and the posterior and anterior chamfers were cut next. The notch-cutting guide was placed. This was pinned to lateralize the femoral component as much as possible while keeping it flush on the cut surface. This was then pinned into position. A reciprocating saw was used to make the notch cut. A rasp smoothed the cut surfaces. A bone hook elevated the femur and a curved osteotome was used to remove osteophytes from the posterior femur. At this time, it was also noticed that there was a large tibial osteophyte posteriorly. Using the osteotome and rondure were also able to remove this as well. A trial posterior stabilized femoral component was then inserted, impacted down to the cut surfaces, and the lug holes were drilled. A provisional trial tibial component was placed and the knee was brought through range of motion. The polyethylene was trialed until there was good flexion and extension with excellent stability to the medial and lateral collaterals. The patella was tracking without thumbs. The tibial cut surface was fully exposed. The medial and lateral menisci were removed. The tibia was then sized as a 4. The tibia had been previously marked during trialing to correspond to the center of the tibial component to help with rotation. The trial was aligned to this nilda, approximately rotated to the medial 1/3rd of the tibial tubercle. The trial was pinned into place. The tibia was prepared with a reamer and a keel punch. The knee was then brought into extension and the patella was measured as 25mm. Using the patellar clamp and cut guide, this was resected to a flat surface with at least 13mm of thickness remaining. The size 35 patella fit the best. This was oriented and then clamped into position. The lugs were drilled. The trial components were removed. The final components, except for the polyethylene were opened on the back table. The periosteal and capsular tissues, especially posteriorly, around the knee were then systematically injected with a periarticular cocktail consisting of 50cc 0.25% Marcaine, 30mg Ketorolac, 20cc of Exparal and 50cc of injectable saline. The tourniquet was then inflated to 275mmHg. The knee was thoroughly irrigated with a pulse lavage and dried. On the back table, with the implants opened, the cement was mixed. 2 batches of antibiotic laden cement were prepared with vacuum assistance. After the cement was ready a small amount was placed on to the back side of the tibial component at the keel. A small amount was placed onto the posterior flange of the femur. Cement was manual pressurized and impregnated into the cut surface of the tibia. The tibial component was then inserted into the cut surface and impacted into position. Excess cement was removed and the component was reimpacted. Again, excess cement was removed and our attention was then turned to the femur. The femoral cut surface was once again dried and cement was manually impacted into t he cut surface. The femoral component was lined with the lug holes and impacted. Excess cement was removed. It was ensured to be down against the cut surface. The trial polyethylene was then inserted and the leg was brought out into full extension for the duration of the cement curing process, approximately 15min. Cement was lastly manually impacted into the cut surface of the patella and the patellar button was clamped into position and held. During this process attention was turned to the gutters of the knee and for all interfaces for any excess cement. The remainder of the periarticular coctail was injectd within the knee. The knee was irrigated with Irrispet chlorhexadine solution and allowed to sit for 3 minutes. After the cement had finally cured, approximately 15min, the clamp was removed from the patella and the knee was taken through range of motion. A size 7mm polyethylene component provided the best range of motion and stability with less than 2mm gapping with medial and lateral stress and full extension without significant hyperextension. The patella was tracking with a no-thumbs technique. The trial poly was removed and once again the knee was checked for a ny loose, excess, or errant cement. The poly component was then inserted and impacted into position after cleaning and drying the tibial tray. The capsule was then reapproximated with a No. 1 Vicryl at multiple locations. The capsule was finally closed with a No. 2 Stratafix, barbed suture. The tourniquet was then released and the arthrotomy appeared watertight without significant bleeding. The second dosing of 1g TXA was started. Deep tissues were then reapproximated with 0 Vicryl and 2-0 Vicryl. The skin was closed with a running 3-0 Monocryl in a subcuticular fashion. This was reinforced with skin glue. A Mepilex silver dressing was applied along with a ekig-ic-iudwu CHLOE wrap. A CryoCuff was applied. María was transferred to the hospital bed without difficulty an suffering no apparent complication. María has a good prognosis. Physical therapy will start today and without restrictions, weight-bearing as tolerated. Aspirin 81mg BID will be used for DVT prophylaxis.
--- NOTE | 2019-06-28 17:02 | IN_ITS ---
Date of service: 06/28/19 Time of Service: 13:22 PT Notes Inpatient Physical Therapy Evaluation Date: 06/28/2019 Referring Doctor: Gunnar Purvis MD PT Orders: PT CONSULT: s/p R TKA Precautions: Fall. Standard. WBAT R LE. Patient Profile/Admitting Diagnosis: Patient is a 69-year-old female s/p R TKA POD 0 due to primary unilateral osteoarthritis of right knee. Patient is also status post left TKA on 05/31/2019 due to primary unilateral osteoarthritis of left knee. PMHX: Medicall History Depression GERD (gastroesophageal reflux disease) (Chronic) History of alcoholism HTN (hypertension) Obesity Surgical History Colonoscopy - MAC (02/16/17) Hx of dilation and curettage (Acute) Hx of knee surgery (Acute) Right knee Hx of tonsillectomy (Chronic) Hx of tubal ligation (Chronic) Social History/Home Situation: Patient lives with in a one floor house with three steps to enter and a rail on the right side going up. She also has 6 steps to negotiate to reach the living room of her house with B rails. She is independent with all aspects of ADLs without the need for an AD or adaptive equipment. 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 She lives with her daughter and grandchildren. Equipment Owned/DME: FWW Subjective: Patient states she is fully prepared for physical therapy, as she had her L knee replaced recently. She states she will be comfortable getting around her own home. She reports 2/10 pain and denies headache, dizziness, lightheadedness. She is agreeable to PT evaluation this afternoon. Objective: General Observation: Patient is seen laying supine in bed with HOB elevated. She has an antithromboembolic device on her L LE, IV in R UE, and barboza catheter. Mental Status: Alert and oriented x 4 Pain: 2/10 ROM: Right Lower Extremity: Hip flexion WFL. Hip abduction WFL. Knee flexion 92 degrees. Knee extension -5 degrees. Ankle dorsiflexion WFL. Ankle plantarflexion WFL. Left Lower Extremity: Hip flexion WFL. Hip abduction WFL. Knee flexion 90 degrees (due to position). Knee extension -2 degrees. Ankle dorsiflexion WFL. Ankle plantarflexion WFL. Strength: Right Lower Extremity: Hip flexors 3+/5. Hip abductors 4/5. Knee flexors 4/5. Knee extensors 3-/5. Ankle dorsiflexors 5/5. Ankle plantarflexors 5/5. Left Lower Extremity:Hip flexors 3+/5. Hip abductors 4/5. Knee flexors 5/5. Knee extensors 5/5. Ankle dorsiflexors 5/5. Ankle plantarflexors 5/5. Bed Mobility/Transfers: Rolling Independent Supine to sit Independent Sit to supine Independent Sit to stand SBA Stand to sit SBA Bed to chair SBA Chair to bed SBA Gait: Patient ambulated 25? with FWW, and SBA WBAT on R LE. She exhibited decreased stance time on R and decreased severino. Her gait was antalgic on the R side which is to be expected. Balance: Static Sitting: Normal Dynamic Sitting: Normal Static Standing: Good Dynamic Standing: Fair Special Tests: Mobility Limitations Standardized Measure [facility] 6 clicks Basic Mobility Inpatient Short Form: Raw Score: 18 CMS Score: 47% Informed Consent/Education: Patient instructed in purpose of PT consult and plan of care. Assessment: Patient is a 69 year old female s/p R TKA POD 0 due to primary osteoarthritis. She felt that her pain has been well managed. Her ROM is fair considering the time passed since surgery. She is well educated on the rehabilitation process as she had a previous TKA on the left. She has the support of many family members that she lives with. Her prognosis is good. Patient presents with clinical signs and symptoms consistent with current/admitting diagnoses that have resulted to mobility limitations, gait instability, generalized weakness, and impairment of motor control as demonst rated by the following impairment level findings: 1. Decreased strength to R LE major muscle groups 2. Impaired standing balance 3. Impaired activity tolerance 4. Limitation of joint range of motion in B knee flexion/extension Impairments are contributing to the following functional limitations: 1. Dependent bed mobility skills 2. Increased dependence with transfers 3. Inability to safely ambulate without assistive device and physical assistance 4. Increase completion time for mobility ADL performance 5. Increased fall risk 6. Inability to negotiate steps alone safely Patient is assessed as a 05453 moderate complexity based on the following: History: Patient is a 69-year-old female s/p R TKA POD 0 due to primary unilateral osteoarthritis of right knee. Examination: Demonstrable impairment in strength, balance, and range of motion with underlying impairments and functional limitations as documented above Presentation: Evolving Decision Makin moderate complexity Goals: Goals X1 week 1. Sit-Stand independent 2. Stand-Sit independent 3. Bed-Chair independent 4. Chair-Bed independent 5. Independent gait on level surface with use of least restrictive device for at least 300 feet without report of pain nor dyspnea 6. Independent stair negotiation while holding onto bilateral rails for at least 10 steps without report of pain nor dyspnea 7. Independent with home exercise program 8. Good static and dynamic standing balance/tolerance Plan of Care/Treatment Plan: 1-2x/day, 7 days/week x 1 week. Plan of care has been reviewed with the ECONOMICS LECTURER providing the service under Physical Therapy direction. Initiate Physical Therapy intervention for strengthening, bed mobility, transfers, gait, stairs, balance training, use of assistive device. DISCHARGE RECOMMENDATIONS: Patient is to be discharged to her home under the concerted care of her family members who she resides with, once she is medically stable and the above goals are met. She is recommended to continue use of a FWW until she is full-weightbearing. May benefit from skilled physical therapy services according to orthopedic surgeon's timeline recommendations. Patient will be educated and trained on home exercise program per TKA exercise protocol in preparation for outpatient physical therapy services. TREATMENT CODE/TIME: 95964 x 32 minutes beginning at 1320 2 PM Thank you very much for this referral. William Rangel [facility] In consultation with: Darlin Comer PT, DPT, CLT [facility]
[2019-06-28] MEDS: Docusate Sodium 100 MG CAP PO (21:11)
[2019-06-28] MEDS: Celecoxib 200 MG CAP PO (21:11)
[2019-06-28] MEDS: oxyCODONE 5 MG TAB PO (21:11)
[2019-06-28] MEDS: Aspirin E.C. 81 MG TABEC PO (21:12)
[2019-06-28] MEDS: Simvastatin 40 MG TAB 80 MG PO (21:13)
[2019-06-28] MEDS: Normal Saline Flush 10 ML SYR IV (21:17)
[2019-06-28] MEDS: Zolpidem 10 MG TAB PO (22:38)
[2019-06-29] VITALS: BP 139/82; PULSE 69; RESP 18; TEMP 36.7; O2SAT 97
[2019-06-29] MEDS: Lactated Ringers 1,000 ML 80 ML IV (04:10)
[2019-06-29] MEDS: oxyCODONE 5 MG TAB PO (05:45)
--- NOTE | 2019-06-29 06:17 | W.PM.DS.N ---
Date of service: 06/29/19 Time of Service: 07:28 DS: Diagnosis Discharge Diagnosis (1) Right knee DJD: Status: Chronic Discharge Plan Disposition Patient Disposition: HOME Condition: Good Discharge Details Reason For Visit: (R) KNEE TOTAL Admit Date/Time: 06/28/19 05:55 Admit Provider: Gunnar Purvis Attending Provider: Gunnar Purvis Primary Care Provider: Nohemy Dang [facility] Course Hospital Course: Patient was admitted to the medical/surgical floor following the procedure. It was tolerated well without any notable medical, surgical, or anesthetic complications. Mobilization began postoperatively. The barboza catheter was removed and voiding spontaneously. Vitals were stable. Physical therapy worked with the patient and was cleared for discharge home. No acute medical issues. Home Meds and New Rx's Prescriptions: New pantoprazole 40 mg tablet,delayed release (DR/EC) 40 mg PO DAILY Qty: 30 RF: 0 oxycodone 5 mg tablet 5 mg PO Q4H Qty: 15 RF: 0 Continued hydrochlorothiazide 25 mg tablet 25 mg PO DAILY RF: 0 simvastatin 80 MG tablet 80 mg PO DAILY RF: 0 lisinopril 5 MG tablet 10 mg PO DAILY RF: 0 zolpidem [Ambien CR] 6.25 MG tablet,ext release multiphase 10 mg PO HS RF: 0 acetaminophen 500 mg tablet 1,000 mg PO Q8H PRN (Reason: pain) Qty: 90 RF: 3 celecoxib 200 mg capsule 200 mg PO BID PRN (Reason: pain) Qty: 60 RF: 1 aspirin 81 mg tablet,delayed release (DR/EC) 81 mg PO BID Qty: 60 RF: 0 Discharge Instructions Additional Instructions: Dr. Purvis?s Total Knee Discharge Instructions Activity: The most important activity is to walk. You should try to take short walks a few times a day. It is important that when resting you work on keeping the knee straight. Avoid putting a pillow behind the knee as this will encourage flexion. Work on range of motion exercises as provided by Physical Therapy. - Start outpatient physical therapy within 2 weeks. - You should wear the HAO hose on both legs for 2 weeks. Dressing: Keep the surgical dressing in place for at least one week. After the first week it may be removed and replace with light gauze and tape or nothing. It may get wet after 3 days but avoid soaking the dressing. If it gets wet, just lightly pat dry. Medications: - You should take Tylenol and anti-inflammatory Celebrex as your primary pain control medications - You have been prescribed a stronger pain medication Oxycodone for breakthrough pain, take as needed as prescribed. - You have also been prescribed a stomach acid reduction agent Pantoprozole to help reduce stomach acid and reflux. - You will be taking Aspirin 81mg twice a day for DVT prevention unless instructed otherwise. - If you have constipation you should take Colace or Miralax (both [id number]). It takes most people 3-4 days to have a bowel movement. Follow-up: 2 weeks Referrals: [facility] [Provider Group] (Resume PT within 2 weeks of R TKA (06/28/19)) Gunnar Purvis MD [ [facility] STAFF PHYSICIAN] - Activity:: Activity as Tolerated Equipment/Supplies:: No Equipment Needed Diet:: As Tolerated Discharge Orders Discharge Orders: Discharge Order (Routine); Ordered 06/29/19 Ordered By: Gunnar Purvis DS: Summary Status at Discharge Functional status at discharge: uses cane/walker Overall status at discharge: patient is progressing back to baseline Mental Status: mental status grossly normal Speech and Movement: speech and movement normal Mood: congruent mood Affect: normal affect Exam Psych Mental Status: mental status grossly normal Speech and Movement: speech and movement normal Mood: congruent mood Affect: normal affect DS: Data Vitals/I&O Vitals and I&O: Vital Signs Temperature 36.7 C 06/29/19 00:00 Temperature Source Temporal Artery Scan 06/29/19 00:00 Pulse 69 06/29/19 00:00 Pulse Rhythm Regular 06/29/19 01:21 Respiratory Rate 18 06/29/19 00:00 Respiratory Effort Non-Labored 06/29/19 01:21 Respiratory Depth Normal 06/29/19 01:21 Respiratory Pattern Normal 06/29/19 01:21 Blood Pressure 139/82 06/29/19 00:00 Blood Pressure Mean 74 06/28/19 18:34 Blood Pressure Position Supine 06/28/19 12:45 Pulse Oximetry 97 06/29/19 00:00 Respiratory End-tidal CO2 35 06/28/19 10:31 Oxygen Delivery Method Room Air 06/29/19 00:00 Oxygen Flow Rate 0 06/29/19 00:00 Pain Level 0 06/29/19 01:17 Comment 06/28/19 12:45 Intake & Output 06/28/19 06/28/19 06/29/19 11:59 23:59 11:59 Intake Total 1220 / 4044.667 2824.667 / 4044.667 525.333 / 525.333 Output Total 300 / 1800 1500 / 1800 750 / 750 Balance 920 / 2244.667 1324.667 / 2244.667 -224.667 / -224.667 Weight 105.5 kg 105.5 kg Intake: IV 1220 / 1894.667 674.667 / 1894.667 525.333 / 525.333 Oral 2150 / 2150 Output: Urine 50 / 1550 1500 / 1550 750 / 750 Estimated Blood Loss 250 / 250 Other: Urine Color Yellow Pale Pale Yellow Urine Appearance Clear Clear Clear Comment urinary incontinece with stress Emesis Description None PFSH Medical History Depression GERD (gastroesophageal reflux disease) (Chronic) History of alcoholism HTN (hypertension) Obesity Surgical History Colonoscopy - MAC (02/16/17) Hx of dilation and curettage (Acute) Hx of knee surgery (Acute) Right knee Hx of tonsillectomy (Chronic) Hx of tubal ligation (Chronic) Status post total left knee replacement (Acute) Social History Smoking/Tobacco Use Status: Never Alcohol Intake: former Drug use: Never Current gender identity: female Do you feel safe at home: Yes Do you feel safe in your relationship?: Yes Additional Social history: past , 30+yrs ago
[2019-06-29 06:21] VITALS: BP 118/62; PULSE 79; RESP 18; TEMP 37.2; O2SAT 96
[2019-06-29 07:30] VITALS: TEMP 37.2
[2019-06-29] MEDS: Celecoxib 200 MG CAP PO (07:37)
[2019-06-29] MEDS: Lisinopril 5 MG TAB 10 MG PO (07:37)
[2019-06-29] MEDS: Acetaminophen 500 MG TAB 1000 MG PO (07:37)
[2019-06-29] MEDS: Aspirin E.C. 81 MG TABEC PO (07:37)
[2019-06-29] MEDS: Pantoprazole 40 MG TABCR PO (07:37)
[2019-06-29] MEDS: hydroCHLOROthiazide 25 MG TAB PO (07:37)
[2019-06-29] MEDS: Normal Saline Flush 10 ML SYR IV (07:39)
--- NOTE | 2019-06-29 08:22 | PT.INTREAT ---
Date of service: 06/29/19 Time of Service: 08:22 PT Notes Inpatient Physical Therapy Treatment Note [facility] Date: 06/29/19 PRECAUTIONS: Fall, WBAT R SUBJECTIVE: María states that she is feeling good this morning. She plans to return to home today. She is excited to continue working with outpatient PT, making progress with both knees, as she recently underwent a TKA on her L LE. OBJECTIVE: PAIN: No c/o pain BED MOBILITY/TRANSFERS Supine-sit: I with HOB flat Sit-supine: I with HOB flat Sit-stand: I Stand-sit: I GAIT Assistive Device: FWW Weight bearing: WBAT R Assist: S Distance: 300' THEREX: Patient completed a lower extremity strengthening and stabilization program, in a supine position, as per flow sheet. Patient is able to perform active SLR x10. She ends with cryocuff to right knee. STAIRS: Up/down 3?4 and 2?6 using one rail/cane and a step to pattern with supervision ASSESSMENT: Patient tolerated session without complaints of pain. She was able to tolerate a progression in gait distance with FWW support and supervision. She demonstrates independence with bed mobility and transfers at this time. She benefit from continued strengthening for improved mobility. PLAN: As per primary PT TREATMENT CODE/TIME: 25 minutes; 84045, [id number]
[2019-06-29 09:44] VITALS: RESP 16
--- NOTE | 2019-07-01 05:42 | PT.INDS ---
Date of service: 07/01/19 PT Notes Inpatient Physical Therapy Discharge Summary Dates: 07/01/2019 Dates of Service: 06/28/2019 through 06/29/2019 This is a clinical summary of care provided on the duration of dates listed above. No charge was made in the completion of this documentation. Referring Doctor: Gunnar Purvis MD PT Orders: PT CONSULT: s/p R TKA Precautions: Fall. Standard. WBAT R LE. Patient Profile/Admitting Diagnosis: Patient is a 69-year-old female s/p R TKA POD 0 due to primary unilateral osteoarthritis of right knee. Patient is also status post left TKA on 05/31/2019 due to primary unilateral osteoarthritis of left knee. PMHX: Medicall History Depression GERD (gastroesophageal reflux disease) (Chronic) History of alcoholism HTN (hypertension) Obesity Surgical History Colonoscopy - MAC (02/16/17) Hx of dilation and curettage (Acute) Hx of knee surgery (Acute) Right knee Hx of tonsillectomy (Chronic) Hx of tubal ligation (Chronic) Social History/Home Situation: Patient lives with in a one floor house with three steps to enter and a rail on the right side going up. She also has 6 steps to negotiate to reach the living room of her house with B rails. She is independent with all aspects of ADLs without the need for an AD or adaptive equipment. 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 She lives with her daughter and grandchildren. Equipment Owned/DME: FWW Subjective: NT Objective: General Observation: NT Mental Status: NT ROM: Right Lower Extremity: Hip flexion WFL. Hip abduction WFL. Knee flexion 92 degrees. Knee extension -5 degrees. Ankle dorsiflexion WFL. Ankle plantarflexion WFL. Left Lower Extremity: Hip flexion WFL. Hip abduction WFL. Knee flexion 90 degrees (due to position). Knee extension -2 degrees. Ankle dorsiflexion WFL. Ankle plantarflexion WFL. Strength: Right Lower Extremity: Hip flexors 3+/5. Hip abductors 4/5. Knee flexors 4/5. Knee extensors 3-/5. Ankle dorsiflexors 5/5. Ankle plantarflexors 5/5. Left Lower Extremity:Hip flexors 3+/5. Hip abductors 4/5. Knee flexors 5/5. Knee extensors 5/5. Ankle dorsiflexors 5/5. Ankle plantarflexors 5/5. Bed Mobility/Transfers: Rolling Independent Supine to sit Independent Sit to supine Independent Sit to stand Independent Stand to sit Independent Bed to chair Independent Chair to bed Independent Gait: Patient ambulated 300? with FWW, and supervision with WBAT on R LE. She exhibited decreased stance time on R and decreased severino. Her gait was antalgic on the R side which is to be expected. Balance: Static Sitting: Normal Dynamic Sitting: Normal Static Standing: Good Dynamic Standing: Fair Assessment: Patient is a 69 year old female s/p R TKA POD 0 due to primary osteoarthritis. She felt that her pain has been well managed. Her ROM is fair considering the time passed since surgery. She is well educated on the rehabilitation process as she had a previous TKA on the left. She has the support of many family members that she lives with. Her prognosis is good. Patient continues to present with clinical signs and symptoms consistent with current/admitting diagnoses that have resulted to mobility limitations, gait instability, generalized weakness, and impairment of motor control as demonstrated by the following impairment level findings: 1. Decreased strength to R LE major muscle groups 2. Impaired standing balance 3. Impaired activity tolerance 4. Limitation of joint range of motion in B knee flexion/extension Impairments are contributing to the following functional limitations: 1. Inability to safely ambulate without assistive device and physical assistance 2. Increase completion time for mobility ADL performance 3. Increased fall risk 4. Inability to negotiate steps alone safely Goals: Goals X1 week 1. Sit-Stand independent MET 2. Stand-Sit independent MET 3. Bed-Chair independent MET 4. Chair-Bed independent MET 5. Independent gait on level surface with use of least restrictive device for at least 300 feet without report of pain nor dyspnea NOT MET 6. Independent stair negotiation while holding onto bilateral rails for at least 10 steps without report of pain nor dyspnea NOT MET 7. Independent with home exercise program NOT MET 8. Good static and dynamic standing balance/tolerance NOT MET DISCHARGE RECOMMENDATIONS: Patient is to be discharged to her home under the concerted care of her family members who she resides with, once she is medically stable and the above goals are met. May benefit from skilled physical therapy services according to orthopedic surgeon's timeline recommendations. TREATMENT CODE/TIME: NC. Thank you very much for this referral. Darlin Comer PT, DPT, CLT [facility]
== END 2019-06-29 09:58 | disposition home or self-care (01) | DRG 470 ==
LOC: PDS 12:24 → ICU 12:39
PROVIDERS: Admitting Provider Student in an Organized Health Care Education/Training Program; PCP Family Medicine; Visit Provider Student in an Organized Health Care Education/Training Program
PROC: 0SRC0J9 Replacement of Right Knee Joint with Synthetic Substitute, Cemented, Open Approach (ICD-10-PCS; CPT 27447; principal; 2019-06-28 07:30)
DX: M17.11 Unilateral primary osteoarthritis, right knee (principal); M25.561 Pain in right knee; Z96.653 Presence of artificial knee joint, bilateral; G89.18 Other acute postprocedural pain; K21.9 Gastro-esophageal reflux disease without esophagitis; I10 Essential (primary) hypertension; F32.9 Major depressive disorder, single episode, unspecified
CPT/HCPCS: 27447; 20985; 76942; 97110; 97162; 97530; NC; J0690; J1885; J2250; J2405

== ENCOUNTER 2019-07-07 13:07 | Outpatient (REF) | payer BC, SELFPAY ==
[2019-07-07 14:26] LABS: Anion Gap 9.2 mmol/L (3-11); BUN 28 mg/dL (7-18); CO2 25.8 mmol/L (21.0-32.0); CREATININE 0.99 mg/dL (0.55-1.02); Calcium 9.1 mg/dL (8.5-10.1); Chloride 101 mmol/L (98-107); Estimated GFR 55.95 (mL/min/1.73m2); Glucose 93 mg/dL (70-100); Potassium 4.2 mmol/L (3.5-5.1); Sodium 136 mmol/L (136-145)
[2019-07-07 14:33] LABS: Hemoglobin A1C 5.5 % (4.5-6.2)
[2019-07-07 14:36] LABS: Microalb ug/mg Crea 4.7 ug/mg Cr
== END 2019-07-07 13:27 ==
LOC: NCHCN 13:07
PROVIDERS: PCP Family Medicine; Visit Provider Family Medicine
DX: N18.3 Chronic kidney disease, stage 3 (moderate) (principal); R73.03 Prediabetes
CPT/HCPCS: 80048; 82043; 82570; 83036

== ENCOUNTER 2019-07-18 13:01 | Outpatient (CLI) | payer BC, MEDICARE, SELFPAY ==
--- NOTE | 2019-07-18 11:45 | DI.RAD_ITS ---
EXAM: XR KNEE RT 1V and standing alignment INDICATION: 1ST POST OP. COMPARISON: XR KNEE LT 1V from 06/16/2019 TECHNIQUE: 2D digital imaging was performed. FINDINGS: The patient has bilateral total knee replacements. The orthopedic hardware appears in good position. No suspicious lucencies are seen in or about the orthopedic hardware. The right lower extremity me asures 83.6 cm. The left lower extremity measures 83.0 cm. IMPRESSION: Bilateral TKR.
== END 2019-07-18 13:21 ==
PROVIDERS: PCP Family Medicine; Visit Provider Student in an Organized Health Care Education/Training Program
DX: Z96.653 Presence of artificial knee joint, bilateral (principal); Z47.1 Aftercare following joint replacement surgery; M21.70 Unequal limb length (acquired), unspecified site
CPT/HCPCS: 73560; 77073

== ENCOUNTER 2020-05-28 15:11 | Outpatient (CLI) | payer BC, SELFPAY ==
--- NOTE | 2020-05-28 15:00 | DI.RAD_ITS ---
EXAM: XR KNEE LT 2V AP,LAT CLINICAL HISTORY: annual f/u. TECHNIQUE: 2D digital imaging was performed. COMPARISON: CR XR STANDING ALIGNMENT from 06/16/2019 CR XR KNEE LT 1V from 06/16/2019 CR XR KNEE RT 1V from 07/18/2019 FINDINGS: There are stable postsurgical changes of a left total knee arthroplasty. The bones are intact. The soft tissues are unremarkable. IMPRESSION: Stable left TKR. DATA REPOSITORY: RADIATION DOSE DELIVERED:
--- NOTE | 2020-05-28 15:00 | DI.RAD_ITS ---
EXAM: XR KNEE RT 2V AP,LAT CLINICAL HISTORY: annual f/u. TECHNIQUE: 2D digital imaging was performed. COMPARISON: CR XR STANDING ALIGNMENT from 06/16/2019 CR XR KNEE RT 1V from 07/18/2019 CR XR STANDING ALIGNMENT from 07/18/2019 FINDINGS: There are stable postsurgical changes of a right total knee arthroplasty. The bones are intact and n ormally mineralized. The soft tissues are unremarkable. IMPRESSION: Stable right TKR. DATA REPOSITORY: RADIATION DOSE DELIVERED:
== END 2020-05-28 15:31 ==
PROVIDERS: PCP Family Medicine; Referring Provider Family Medicine; Visit Provider Student in an Organized Health Care Education/Training Program
DX: Z96.653 Presence of artificial knee joint, bilateral (principal)
CPT/HCPCS: 73560

== ENCOUNTER 2020-06-22 13:36 | Outpatient (REF) | payer BC, SELFPAY ==
[2020-06-22 19:20] LABS: HCT 41.1 % (36.0-46.0); HGB 13.7 g/dL (11.2-15.7); MCH 28.9 pg (27.0-33.0); MCHC 33.3 % (32.0-36.0); MCV 86.7 fL (80-95); MPV 10.4 fL (8.0-11.0); Platelet Count 233 10^3/uL (130-400); RBC 4.74 10^6/uL (3.93-5.22); RDW 12.8 % (11.7-14.6); RDW-SD 40.3 fL; WBC 7.34 10^3/uL (4.4-10.8)
[2020-06-22 19:58] LABS: Hemoglobin A1C 5.5 % (<5.7)
[2020-06-22 21:47] LABS: Anion Gap 8.3 mmol/L (3-11); BUN 25 mg/dL (7-18); CO2 23.7 mmol/L (21.0-32.0); CREATININE 0.99 mg/dL (0.55-1.02); Calcium 9.5 mg/dL (8.5-10.1); Chloride 101 mmol/L (98-107); Estimated GFR 55.78 (mL/min/1.73m2); Glucose 103 mg/dL (74-106); Potassium 3.9 mmol/L (3.5-5.1); Sodium 133 mmol/L (136-145)
== END 2020-06-22 13:56 ==
LOC: NCHCN 13:36
PROVIDERS: PCP Family Medicine; Visit Provider Family Medicine
DX: R73.03 Prediabetes (principal); I10 Essential (primary) hypertension; E78.5 Hyperlipidemia, unspecified; N18.30 Chronic kidney disease, stage 3 unspecified
CPT/HCPCS: 80048; 85027; 83036

== ENCOUNTER 2020-07-30 01:44 | Outpatient (CLI) | payer BC, SELFPAY ==
--- NOTE | 2020-07-30 | DI.MAMMO_ITS ---
EXAM: MAMMO SCREENING CLINICAL HISTORY: SCREENING,Z12.31 TECHNIQUE: Mammograms were interpreted according to the usual protocol including computer analysis w [employer] CAD system, tomosynthesis and C-view imaging. COMPARISON: 2011 through 2017 FINDINGS: The breasts are composed of scattered fibroglandular densities, Breast Density category B. No suspicious masses or suspicious microcalcifications are seen. No skin thickening or abnormal axillary lymph nodes are seen. There has been no significant change from prior exams. IMPRESSION: BI-RADS Category 1, Negative mammogram Yearly screening mammography is recommended. Breast Density - Category B, scattered fibroglandular densities. A negative radiographic report should not delay biopsy if a dominant or clinically suspicious mass is present. Up to ten percent of cancers are not identified on mammography. A negative report may reinforce clinical impression. Adenosis and dense breasts may obscure an underlying neoplasm. False positive reports average 6 to 10%. Patient will receive a letter notifying them of these results.
== END 2020-07-30 02:04 ==
PROVIDERS: PCP Family Medicine; Visit Provider Family Medicine
DX: Z12.31 Encounter for screening mammogram for malignant neoplasm of breast (principal)
CPT/HCPCS: 77063; 77067

== ENCOUNTER 2020-12-25 18:47 | Outpatient (REF) | payer BC, SELFPAY ==
[2020-12-25 13:33] LABS: Anion Gap 11.6 mmol/L (3-11); BUN 18 mg/dL (7-18); CO2 23.4 mmol/L (21.0-32.0); CREATININE 0.9 mg/dL (0.55-1.02); Chloride 106 mmol/L (98-107); Glucose 96 mg/dL (74-106); Potassium 3.7 mmol/L (3.5-5.1); Sodium 141 mmol/L (136-145)
[2020-12-25 13:44] LABS: Hemoglobin A1C 5.5 % (<5.7)
== END 2020-12-25 18:48 | disposition home or self-care (01) ==
LOC: NCHCN 18:47
PROVIDERS: PCP Family Medicine; Visit Provider Family Medicine
DX: R73.03 Prediabetes (principal); I10 Essential (primary) hypertension; N18.30 Chronic kidney disease, stage 3 unspecified
CPT/HCPCS: 80048; 83036

== ENCOUNTER 2021-05-27 15:24 | Outpatient (CLI) | payer BC, SELFPAY ==
--- NOTE | 2021-05-27 15:00 | DI.RAD_ITS ---
Exam(s) XR KNEE RT 2V AP,LAT EXAM: XR KNEE RT 2V AP,LAT CLINICAL HISTORY: ANNUAL F/U R TKA. TECHNIQUE: 2D digital imaging was performed. COMPARISON: CR XR KNEE RT 2V AP,LAT from 05/28/2020 FINDINGS: Stable position of the components of the prosthesis. No fracture or loosening evident. IMPRESSION: DATA REPOSITORY: RADIATION DOSE DELIVERED:
--- NOTE | 2021-05-27 15:00 | DI.RAD_ITS ---
Exam(s) XR KNEE LT 2V AP,LAT EXAM: XR KNEE LT 2V AP,LAT CLINICAL HISTORY: ANNUAL F/U L TKA. TECHNIQUE: 2D digital imaging was performed. COMPARISON: CR XR KNEE LT 2V AP,LAT from 05/28/2020 CR XR KNEE LT 2V AP,LAT from 05/28/2020 CR XR KNEE RT 2V AP,LAT from 05/28/2020 CR XR KNEE RT 2V AP,LAT from 05/28/2020 CR XR KNEE RT 2V AP,LAT from 05/27/2021 FINDINGS: Stable position alignment of components of the prosthesis. No fracture or loosening evident. IMPRESSION: DATA REPOSITORY: RADIATION DOSE DELIVERED:
== END 2021-05-27 15:25 | disposition home or self-care (01) ==
LOC: DIORS 15:25
PROVIDERS: PCP Family Medicine; Referring Provider Family Medicine; Visit Provider Student in an Organized Health Care Education/Training Program
DX: Z96.651 Presence of right artificial knee joint (principal); Z96.652 Presence of left artificial knee joint; Z98.890 Other specified postprocedural states
CPT/HCPCS: 73560

== ENCOUNTER 2021-08-12 02:44 | Outpatient (CLI) | payer BC, SELFPAY ==
[2021-08-12 10:40] LABS: Source Nasal/Nares
[2021-08-12 14:26] LABS: COVID-19 PCR Negative (Negative)
== END 2021-08-12 02:45 | disposition home or self-care (01) ==
LOC: LBO 02:44
PROVIDERS: PCP Family Medicine; Visit Provider Student in an Organized Health Care Education/Training Program
DX: Z20.822 Contact with and (suspected) exposure to COVID-19 (principal)
CPT/HCPCS: 87635

== ENCOUNTER 2021-08-13 11:20 | Day surgery (SDC) | payer BC, SELFPAY ==
--- NOTE | 2021-08-13 11:10 | W.ANESPRE ---
General Info Date of Service Date Performed: 08/13/21 Height: 5 ft 1 in Weight: 106.594 kg Body Mass Index (BMI): 44.4 Surgical Procedure: Operation Date: 08/13/21 14:25 Proposed Procedures Side Surgeon p (R) Wrist ECTR Right Gunnar Purvis MD Meds Allergies and Home Medications Allergies Allergy/AdvReac Type Severity Reaction Status Date / Time No Known Drug Allergies Allergy Verified 08/13/21 12:04 Home Medication Medication Instructions Recorded simvastatin 80 mg PO DAILY 02/10/17 hydrochlorothiazide 25 mg tablet 25 mg PO DAILY 01/10/19 acetaminophen 500 mg tablet 1,000 mg PO Q8H PRN #90 tab 11/24/19 doxepin 25 mg capsule 25 mg PO HS 05/28/20 lisinopril 5 mg tablet 5 mg PO DAILY tab-cap 05/28/20 Current Visit Medications: Current Medications Generic Name Dose Route Start Last Admin Trade Name Freq PRN Reason Stop Dose Admin Ringer's Solution 1,000 mls @ 80 mls/hr 08/13/21 06:00 IV 09/11/21 23:59 INFUSION CINTHIA Cefazolin Sodium/Dextrose 2 gm in 50 mls @ 100 mls/hr 08/13/21 06:00 Ancef Duplex IVPB 08/13/21 16:00 PREOP CINTHIA IV Miscellaneous Supplies 1 each 08/13/21 06:00 Iv Access IV 09/11/21 23:59 DIRECTED CINTHIA Sodium Chloride 0 ml 08/13/21 06:00 Normal Saline Flush 10 Ml Syr IV 09/11/21 23:59 PRN PRN Sodium Chloride 0 ml 08/13/21 06:00 Normal Saline 10 Ml Vial IJ 09/11/21 23:59 DIRECTED PRN Sterile Water 0 ml 08/13/21 06:00 Water,Injection,Sterile 10 Ml Vial IJ 09/11/21 23:59 DIRECTED PRN PFSH Active Problems Active Problems: Problem Status Onset Code Right carpal tunnel syndrome G56.01 Status post right knee replacement 06/28/19 Z96.651 Status post total left knee replacement 05/31/19 Z96.652 Medical History Active Problem List Right carpal tunnel syndrome (Acute) Status post right knee replacement (Acute 06/28/19) Status post total left knee replacement (Acute 05/31/19) Medical History Depression GERD (gastroesophageal reflux disease) History of alcoholism HTN (hypertension) Obesity Surgical History Surgical History Colonoscopy - MAC (02/16/17) Hx of dilation and curettage Hx of knee surgery Right knee Hx of tonsillectomy Hx of tubal ligation Tobacco Smoking/Tobacco Use Status: Never Alcohol Alcohol Intake: former Substance Use Substance use: Never Substance use type: does not use Vital Signs and Lab Results Vital Signs Most Recent Vital Signs in EMR: Temp Pulse Resp BP Pulse Ox 36.5 C 85 18 140/90 97 08/13/21 12:13 08/13/21 12:13 08/13/21 12:13 08/13/21 12:13 08/13/21 12:13 Lab Results Blood Type / Crossmatch: No Data to Display Complete Blood Count: No Data to Display Complete Metabolic Panel: No Data to Display Liver Function Panel: No Data to Display Coagulation Panel: No Data to Display Cardiac Panel: No Data to Display Arterial Blood Gas: No Data to Display Venous Blood Gas: No Data to Display Pancreas Panel: No Data to Display Thyroid Panel: No Data to Display Infectious Disease: Coronavirus (COVID-19)(PCR) Negative (Negative) 08/12/21 08:55 08/12/21 Coronavirus 2019 Source Nasal/Nares 08/12/21 08:55 08/12/21 Blood Cultures: No Data to Display Toxicology Panel: No Data to Display Anesthesia Assessment and Plan Anesthesia History Personal History: No History of Anesthesia Complications Family History: No Family History of Anesthesia Complications Exercise Tolerance Exercise Tolerance: Metabolic Equivalents>4 Cardiac & Pulmonary Exam Cardiac Exam: Normal S1/S2 Heart Sounds Pulmonary Exam: Clear Bilateral Breath Sounds Implantable Cardiac Device Does patient have a Pacemaker or an ICD?: No Airway Exam Known Difficult Airway: No Mallampati Class: 3 Mouth Opening: Narrow (< 3cm) Thyromental Distance: Less than 3 cm Neck Range of Motion: Full ROM Neck Circumference: Thick Teeth Condition: Normal Dentition and Removable Dentures/Plates Upper (lower) ASA Classification ASA Score: ASA 2 Emergency Case?: No NPO Status NPO Status: NPO Clears >2 hours, Solids >8 hours Anesthesia Plan Resuscitation Status: Full Code Anesthesia Technique: General Anesthesia Airway Planned: Natural Airway Monitors Used: Standard Monitors Preoperative Comments:: 71 yo female for right ECTR. Sig PMHx: GERD, HTN (HCTZ/Lisinopril), Previous Anes: no issues, only spinal in the past
[2021-08-13 12:13] VITALS: BP 140/90; PULSE 85; RESP 18; TEMP 36.5; O2SAT 97
--- NOTE | 2021-08-13 12:18 | W.PREOPHP ---
Date of service: 08/13/21 Time of Service: 12:18 Assessment and Plan Assessment and plan (1) Right carpal tunnel syndrome: Status: Acute Assessment and plan: María is a 71-year-old who has bilateral carpal tunnel syndrome. In the previous office note treatment options were discussed with María. She has elected to proceed with endoscopic carpal tunnel release of both sides, starting with the right side today. I once again reviewed the risk of the procedure to include bleeding, infection, pain, stiffness, continued pain, continued numbness, injury to the nerve or vessel, recurrence. Despite this risk, she elects to proceed. We will plan to perform the right endoscopic carpal tunnel release today followed by the left side in 1 week. History of Present Illness History of Present Illness Chief Complaint: Bilateral Carpal Tunnel Syndrome Narrative: María is a 71-year-old female who has bilateral carpal tunnel syndrome. Please see the previous office note for complete details of her clinical history. In the office she elects to proceed with bilateral carpal tunnel releases, starting with the right side and then proceed to the left side. She reports no changes to her medical history. She has had no sick contacts. She has no fever no chills. She is COVID-19 negative. Review of Systems All systems reviewed & are unremarkable except as noted in HPI and below PFSH Active Problem List Right carpal tunnel syndrome (Acute) Status post right knee replacement (Acute 06/28/19) Status post total left knee replacement (Acute 05/31/19) Medical History Depression GERD (gastroesophageal reflux disease) History of alcoholism HTN (hypertension) Obesity Surgical History Colonoscopy - MAC (02/16/17) Hx of dilation and curettage Hx of knee surgery Right knee Hx of tonsillectomy Hx of tubal ligation Social History Smoking/Tobacco Use Status: Never Smoking risk assessment performed?: Yes Alcohol Intake: former Drug use: Never Substance use type: does not use Current gender identity: female Do you feel safe at home: Yes Do you feel safe in your relationship?: Yes Meds Allergies and Home Medications Allergies Allergy/AdvReac Type Severity Reaction Status Date / Time No Known Drug Allergies Allergy Verified 08/13/21 12:04 Home Medications Medication Instructions Recorded Confirmed Type simvastatin 80 mg PO DAILY 02/10/17 08/13/21 History hydrochlorothiazide 25 mg tablet 25 mg PO DAILY 01/10/19 08/13/21 History acetaminophen 500 mg tablet 1,000 mg PO Q8H PRN #90 tab 11/24/19 08/13/21 Rx doxepin 25 mg capsule 25 mg PO HS 05/28/20 08/13/21 History lisinopril 5 mg tablet 5 mg PO DAILY tab-cap 05/28/20 08/13/21 History Exam Const General: cooperative, comfortable and no acute distress Nutritional Appearance: average body habitus Orientation: alert, awake and oriented x3 Resp Auscultation: clear to auscultation bilaterally Cardio Rate: regular rate Rhythm: regular rhythm
[2021-08-13] MEDS: Lactated Ringers 1,000 ML 80 ML IV (12:25)
--- NOTE | 2021-08-13 12:26 | W.PM.DSUDISC ---
Discharge Plan Disposition Patient Disposition: HOME Condition: Good Discharge Details Reason For Visit: Right ECTR Attending Provider: Gunnar Purvis Primary Care Provider: Nohemy Dang Home Meds and New Rx's Prescriptions: Continued hydrochlorothiazide 25 mg tablet 25 mg PO DAILY RF: 0 doxepin 25 mg capsule 25 mg PO HS RF: 0 simvastatin 80 MG tablet 80 mg PO DAILY RF: 0 acetaminophen 500 mg tablet 1,000 mg PO Q8H PRN (Reason: pain) Qty: 90 RF: 6 lisinopril 5 mg tablet 5 mg PO DAILY RF: 0 Discharge Instructions Stand Alone Forms: Vannaa Mary Jo Tunnel Release Activity:: Activity as Tolerated Remove Dressings/Wound Care:: 72 hours Shower/Bathe:: 72 hours Diet:: As Tolerated Discharge Orders Discharge Orders: Discharge Order (Routine); Ordered 08/13/21 Ordered By: Fanta Shabazz DS: Diagnosis Discharge Diagnosis (1) Right carpal tunnel syndrome: Status: Acute
[2021-08-13 12:38] VITALS: BMI 44.4
[2021-08-13] MEDS: ceFAZolin 2 GM/50 ML BAG IVPB (13:20)
[2021-08-13] MEDS: Sodium Bicarbonate 50 MEQ/50 ML VIAL (13:37)
[2021-08-13 13:39] VITALS: BP 133/73; PULSE 74; RESP 18; TEMP 36.1; O2SAT 95
--- NOTE | 2021-08-13 14:01 | W.ANESPOSTOP ---
Postoperative Evaluation Date, Time and Location Date Performed: 08/13/21 Time Performed: 14:01 Patient Location: Day Surgery Unit Vital Signs Most Recent Imported Vital Signs: Most Recent Vital Signs Temp Pulse Resp BP Pulse Ox 36.1 C L 74 18 133/73 95 08/13/21 13:39 08/13/21 13:39 08/13/21 13:39 08/13/21 13:39 08/13/21 13:39 Pain Score Most Recent Pain Score: Most Recent Pain Score Pain Level 0 08/13/21 13:39 Assessment Mental Status: Awake (Alert & Oriented to Patient Baseline) Airway and Respiratory Function: Patent airway with normal (patient baseline) respiratory exam Cardiovascular Function: Hemodynamically Stable Hydration Status: Adequately Hydrated Nausea & Vomiting: No Nausea or Vomiting Pain: Pt. Denies Any Pain Peripheral Nerve Block: Patient did not receive a nerve block
[2021-08-13 14:10] VITALS: BP 133/73; PULSE 74; RESP 18; TEMP 36.1; O2SAT 95
--- NOTE | 2021-08-14 16:11 | ROE_ITS ---
Date of service: 08/13/21 Time of Service: 13:11 Operative Note Operative Note DATE OF PROCEDURE: 08/13/21 PRE-OP DIAGNOSIS: Right Carpal Tunnel Syndrome POST-OP DIAGNOSIS: same PROCEDURE: Right Endoscopic Carpal Tunnel Release SURGEON: Gunnar Purvis ANESTHESIA TYPE: General:No Airway Refer to Anesthesia Record ESTIMATED BLOOD LOSS: 0 PATHOLOGY: none sent TOURNIQUET TIME: 5 COMPLICATIONS: None Patient was transported to: same day Patient's condition: stable Indications: I have seen María in clinic for symptoms of carpal tunnel syndrome. The numbness, tingling, and pain limited function. Clinical exam findings with nerve conduction tests confirmed the diagnosis of carpal tunnel syndrome. Nonoperative measures such as bracing, time, activity modifications had been tried but disability and pain persisted. I discussed carpal tunnel release with the patient. I reviewed the risks of the procedure to include, but not limited to, bleeding, infection, pain, stiffness, incomplete release, damage to nerves or vessels, persistent numbness, recurrence. Despite these risks, the patient elected to proceed. Findings: There was tightened carpal tunnel. This was dilated and released successfully with the endoscopic with increased space within the tunnel. The a ntebrachial fascia was released proximally freeing the median nerve at the wrist. Procedure Description: María was greeted in the preoperative holding area where the correct side was identified and marked. The consent was reviewed with the patient and signed. The history and physical was updated. All questions were answered. She was taken back to the operating room. The patient was placed into the supine position on the operating room table with the right arm on an arm board. A nonsterile tourniquet was placed high onto the arm. All bony prominences were well padded. Prophylactic antibiotics in the form of Cefazolin were administered. The right arm was then prepped with Chloraprep and draped in a standard fashion with stockinette and extremity drape. A timeout to confirm correct identity, side and site, procedure, allergies, anesthesia, and medical concerns was performed. The surgical site was marked in the volar wrist creases in line with the radial border of the fourth ray. This area was anesthetized with approximately 6cc of 1% Lidocaine. The limb was then exsanguinated with an Esmarch. The skin was incised with a 15 blade, approximately 1cm. The skin only was cut and the deeper tissue was dissected bluntly with a tenotomy scissor, avoiding passing nerve and venous structures. The fascia was penetrated and opened bluntly. A two-prong skin hook was placed under this proximal fascial edge. A series of hamate finders were used to identify and dilate the carpal tunnel. Synovial elevator was used to free synovial attachments to the underside of the transverse carpal ligament. My thumb was kept in the palm to nilda the distal extent of the carpal tunnel and correctly position the hand. The Microaire endoscope was inserted without difficulty and without resistance. Excellent visualization showed horizontally running fibers of the transverse carpal ligament (TCL). The distal extent of the TCL was visualized and the end of the scope palpated with the thumb. The blade was elevated and withdrawn from distal to proximal. The TCL was split into two flaps. The endoscope was reinserted to confirm complete release and any remnant ligament was incised. The scope was withdrawn and the proximal aspect of the carpal tunnel was grossly inspected and appeared release with the median nerve visible. The antebrachial fascia at the level of the wrist was then freed from the overlying skin and then the underlying median nerve with blunt dissection. This was transected longitudinally for about 3cm proximal to the wrist incision. The wound was then irrigated with easy flow of irrigant distally and proximally. The incision was closed with a single 4-0 Nylon suture. The wound was dressed with Xeroform, Gauze, Kerlix and Braden. The tourniquet was deflated with the initial dressing and held with some pressure. Blood flow returned easily to all digits with capillary refill less than 2 seconds. The patient tolerated the procedure well and was returned to the Same Day Surgery area in a stable condition suffering no known complication.
== END 2021-08-13 15:03 | disposition home or self-care (01) ==
PROVIDERS: PCP Family Medicine; Visit Provider Student in an Organized Health Care Education/Training Program
PROC: 01N54ZZ Release Median Nerve, Percutaneous Endoscopic Approach (ICD-10-PCS; CPT 29848; principal; 2021-08-13 14:15)
DX: G56.01 Carpal tunnel syndrome, right upper limb (principal); K21.9 Gastro-esophageal reflux disease without esophagitis; I10 Essential (primary) hypertension
CPT/HCPCS: 29848; J0690; J1885; J2001; J2250; J2704

== ENCOUNTER 2021-08-19 03:43 | Outpatient (CLI) | payer BC, SELFPAY ==
[2021-08-19 10:10] LABS: Source Nasal/Nares
[2021-08-19 12:30] LABS: COVID-19 PCR Negative (Negative)
== END 2021-08-19 03:44 | disposition home or self-care (01) ==
LOC: LBO 03:43
PROVIDERS: PCP Family Medicine; Visit Provider Student in an Organized Health Care Education/Training Program
DX: Z20.822 Contact with and (suspected) exposure to COVID-19 (principal); Z01.818 Encounter for other preprocedural examination
CPT/HCPCS: 87635

== ENCOUNTER 2021-08-20 06:13 | Day surgery (SDC) | payer BC, SELFPAY ==
[2021-08-20 06:26] VITALS: BP 122/53; PULSE 78; RESP 16; TEMP 36.4; O2SAT 97
[2021-08-20] MEDS: Lactated Ringers 1,000 ML 80 ML IV (06:51)
--- NOTE | 2021-08-20 07:02 | W.ANESPRE ---
General Info Date of Service Date Performed: 08/20/21 Height: 5 ft 1 in Weight: 110.4 kg Body Mass Index (BMI): 46.0 Surgical Procedure: Operation Date: 08/20/21 07:40 Proposed Procedures Side Surgeon p Wrist ECTR Left Gunnar Purvis MD Meds Allergies and Home Medications Allergies Allergy/AdvReac Type Severity Reaction Status Date / Time No Known Drug Allergies Allergy Verified 08/20/21 06:36 Home Medication Medication Instructions Recorded simvastatin 80 mg PO DAILY 02/10/17 hydrochlorothiazide 25 mg tablet 25 mg PO DAILY 01/10/19 acetaminophen 500 mg tablet 1,000 mg PO Q8H PRN #90 tab 11/24/19 doxepin 25 mg capsule 25 mg PO HS 05/28/20 lisinopril 5 mg tablet 5 mg PO DAILY tab-cap 05/28/20 Current Visit Medications: Current Medications Generic Name Dose Route Start Last Admin Trade Name Freq PRN Reason Stop Dose Admin Ringer's Solution 1,000 mls @ 80 mls/hr 08/20/21 06:00 08/20/21 06:51 IV 09/18/21 23:59 80 mls/hr INFUSION CINTHIA Administration Cefazolin Sodium/Dextrose 2 gm in 50 mls @ 100 mls/hr 08/20/21 06:00 Ancef Duplex IVPB 08/20/21 16:00 PREOP CINTHIA IV Miscellaneous Supplies 1 each 08/20/21 06:00 Iv Access IV 09/18/21 23:59 DIRECTED CINTHIA Sodium Chloride 0 ml 08/20/21 06:00 Normal Saline Flush 10 Ml Syr IV 09/18/21 23:59 PRN PRN Sodium Chloride 0 ml 08/20/21 06:00 Normal Saline 10 Ml Vial IJ 09/18/21 23:59 DIRECTED PRN Sterile Water 0 ml 08/20/21 06:00 Water,Injection,Sterile 10 Ml Vial IJ 09/18/21 23:59 DIRECTED PRN PFSH Active Problems Active Problems: Problem Status Onset Code Right carpal tunnel syndrome G56.01 Status post right knee replacement 06/28/19 Z96.651 Status post total left knee replacement 05/31/19 Z96.652 Medical History Active Problem List Right carpal tunnel syndrome (Acute) Status post right knee replacement (Acute 06/28/19) Status post total left knee replacement (Acute 05/31/19) Medical History Depression GERD (gastroesophageal reflux disease) History of alcoholism HTN (hypertension) Obesity Surgical History Surgical History Colonoscopy - MAC (02/16/17) Hx of dilation and curettage Hx of knee surgery Right knee Hx of tonsillectomy Hx of tubal ligation Tobacco Smoking/Tobacco Use Status: Never Alcohol Alcohol Intake: former Substance Use Substance use: Never Substance use type: does not use Vital Signs and Lab Results Vital Signs Most Recent Vital Signs in EMR: Most Recent Vital Signs Temp Pulse Resp BP Pulse Ox 36.4 C L 78 16 122/53 L 97 08/20/21 06:26 08/20/21 06:26 08/20/21 06:26 08/20/21 06:26 08/20/21 06:26 Lab Results Blood Type / Crossmatch: No Data to Display Complete Blood Count: No Data to Display Complete Metabolic Panel: No Data to Display Liver Function Panel: No Data to Display Coagulation Panel: No Data to Display Cardiac Panel: No Data to Display Arterial Blood Gas: No Data to Display Venous Blood Gas: No Data to Display Pancreas Panel: No Data to Display Thyroid Panel: No Data to Display Infectious Disease: Coronavirus (COVID-19)(PCR) Negative (Negative) 08/19/21 09:30 08/19/21 Coronavirus 2019 Source Nasal/Nares 08/19/21 09:30 08/19/21 Blood Cultures: No Data to Display Toxicology Panel: No Data to Display Anesthesia Assessment and Plan Anesthesia History Personal History: No History of Anesthesia Complications Family History: No Family History of Anesthesia Complications Exercise Tolerance Exercise Tolerance: Metabolic Equivalents>4 Pertinent Negatives Pertinent Negatives: No Symptoms of GERD Cardiac & Pulmonary Exam Cardiac Exam: Normal S1/S2 Heart Sounds Pulmonary Exam: Clear Bilateral Breath Sounds Implantable Cardiac Device Does patient have a Pacemaker or an ICD?: No Airway Exam Known Difficult Airway: No Mallampati Class: 3 Mouth Opening: Narrow (< 3cm) Thyromental Distance: Less than 3 cm Neck Range of Motion: Full ROM Neck Circumference: Thick Teeth Condition: Normal Dentition and Removable Dentures/Plates Upper (lower) ASA Classification ASA Score: ASA 2 Emergency Case?: No NPO Status NPO Status: NPO Clears >2 hours, Solids >8 hours Anesthesia Plan Resuscitation Status: Full Code Anesthesia Technique: General Anesthesia Airway Planned: Natural Airway Monitors Used: Standard Monitors
[2021-08-20 07:03] VITALS: BMI 46.0
[2021-08-20] MEDS: ceFAZolin 2 GM/50 ML BAG IVPB (07:18)
--- NOTE | 2021-08-20 07:18 | PDOC.DSDIS_ITS ---
Discharge Plan Disposition Patient Disposition: HOME Condition: Good Discharge Details Reason For Visit: Left Carpal Tunnel Syndrome Attending Provider: Gunnar Purvis Primary Care Provider: Nohemy Dang Home Meds and New Rx's Prescriptions: Continued hydrochlorothiazide 25 mg tablet 25 mg PO DAILY RF: 0 doxepin 25 mg capsule 25 mg PO HS RF: 0 simvastatin 80 MG tablet 80 mg PO DAILY RF: 0 acetaminophen 500 mg tablet 1,000 mg PO Q8H PRN (Reason: pain) Qty: 90 RF: 6 lisinopril 5 mg tablet 5 mg PO DAILY RF: 0 Discharge Instructions Stand Alone Forms: Yaniv Camargo Tunnel Release Referrals: Gunnar Purvis MD [ [facility] STAFF PHYSICIAN] - Activity:: Elevate Remove Dressings/Wound Care:: 48 hours Shower/Bathe:: 48 hours Diet:: As Tolerated Discharge Orders Discharge Orders: Discharge Order (Routine); Ordered 08/20/21 Ordered By: Gunnar Purvis DS: Diagnosis Discharge Diagnosis (1) Left carpal tunnel syndrome: Status: Acute
[2021-08-20] MEDS: Sodium Bicarbonate 50 MEQ/50 ML VIAL (07:24)
[2021-08-20 07:42] VITALS: BP 131/52; PULSE 74; RESP 18; TEMP 36.5; O2SAT 94
--- NOTE | 2021-08-20 08:06 | W.ANESPOSTOP ---
Postoperative Evaluation Date, Time and Location Date Performed: 08/20/21 Time Performed: 07:43 Patient Location: Day Surgery Unit Vital Signs Most Recent Imported Vital Signs: Most Recent Vital Signs Temp Pulse Resp BP Pulse Ox 36.5 C 74 18 131/52 L 94 08/20/21 07:42 08/20/21 07:42 08/20/21 07:42 08/20/21 07:42 08/20/21 07:42 Pain Score Most Recent Pain Score: Most Recent Pain Score Pain Level 0 08/20/21 07:42 Assessment Mental Status: Awake (Alert & Oriented to Patient Baseline) Airway and Respiratory Function: Patent airway with normal (patient baseline) respiratory exam Cardiovascular Function: Hemodynamically Stable Hydration Status: Adequately Hydrated Nausea & Vomiting: No Nausea or Vomiting Pain: Pt. Denies Any Pain Peripheral Nerve Block: Patient did not receive a nerve block
[2021-08-20 08:17] VITALS: BP 145/86; PULSE 67; RESP 16; TEMP 36.4; O2SAT 95
--- NOTE | 2021-08-20 09:08 | ROE_ITS ---
Date of service: 08/20/21 Time of Service: 07:32 Operative Note Operative Note DATE OF PROCEDURE: 08/20/21 PRE-OP DIAGNOSIS: Left Carpal Tunnel Syndrome POST-OP DIAGNOSIS: same PROCEDURE: Left Endoscopic Carpal Tunnel Release SURGEON: Gunnar Purvis ANESTHESIA TYPE: General:No Airway Refer to Anesthesia Record ESTIMATED BLOOD LOSS: 0 PATHOLOGY: none sent TOURNIQUET TIME: 6 COMPLICATIONS: None Patient was transported to: same day Patient's condition: stable Indications: I have seen María in clinic for symptoms of carpal tunnel syndrome. The numbness, tingling, and pain limited function. Clinical exam findings confirmed the diagnosis of carpal tunnel syndrome. Nonoperative measures such as bracing, time, activity modifications had been tried but disability and pain persisted. She had a successful carpal tunnel release on the right side. I discussed carpal tunnel release with the patient. I reviewed the risks of the procedure to include, but not limited to, bleeding, infection, pain, stiffness, incomplete release, damage to nerves or vessels, persistent numbness, recurrence. Despite these risks, the patient elected to proceed. Findings: There was tightened carpal tunnel. This was dilated and released successfully with the endoscopic with increased space within the tunnel. The antebrachial fascia was released proximally freeing the median nerve at the wrist. The suture from the right side was removed. Procedure Description: María was greeted in the preoperative holding area where the correct side was identified and marked. The consent was reviewed with the patient and signed. The history and physical was updated. All questions were answered. She was taken back to the operating room. The patient was placed into the supine position on the operating room table with the left arm on an arm board. A nonsterile tourniquet was placed high onto the arm. All bony prominences were well padded. Prophylactic antibiotics in the form of Cefazolin were administered. The left arm was then prepped with Chloraprep and draped in a standard fashion with stockinette and extremity drape. A timeout to confirm correct identity, side and site, procedure, allergies, anesthesia, and medical concerns was performed. The surgical site was marked in the volar wrist creases in line with the radial border of the fourth ray. This area was anesthetized with approximately 6cc of 1% Lidocaine. The limb was then exsanguinated with an Esmarch. The skin was incised with a 15 blade, approximately 1cm. The skin only was cut and the deeper tissue was dissected bluntly with a tenotomy scissor, avoiding passing nerve and venous structures. The fascia was penetrated and opened bluntly. A two-prong skin hook was placed under this proximal fascial edge. A series of hamate finders were used to identify and dilate the carpal tunnel. Synovial elevator was used to free synovial attachments to the underside of the transverse carpal ligament. My thumb was kept in the palm to nilda the distal extent of the carpal tunnel and correctly position the hand. The Microaire endoscope was inserted without difficulty and without resistance. Excellent visualization showed horizontally running fibers of the transverse carpal ligament (TCL). The distal extent of the TCL was visualized and the end of the scope palpated with the thumb. The blade was elevated and withdrawn from distal to proximal. The TCL was split into two flaps. The endoscope was reinserted to confirm complete release and any remnant ligament was incised. The scope was withdrawn and the proximal aspect of the carpal tunnel was grossly inspected and appeared release with the median nerve visible. The antebrachial fascia at the level of the wrist was then freed from the overlying skin and then the underlying median nerve with blunt dissection. This was transected longitudinally for about 3cm proximal to the wrist incision. The wound was then irrigated with easy flow of irrigant distally and proximally. Th e incision was closed with a single 4-0 Nylon suture. The wound was dressed with Xeroform, Gauze, Kerlix and Braden. The tourniquet was deflated with the initial dressing and held with some pressure. Blood flow returned easily to all digits with capillary refill less than 2 seconds. The patient tolerated the procedure well and was returned to the Same Day Surgery area in a stable condition suffering no known complication.
== END 2021-08-20 08:31 | disposition home or self-care (01) ==
PROVIDERS: PCP Family Medicine; Visit Provider Student in an Organized Health Care Education/Training Program
PROC: 01N54ZZ Release Median Nerve, Percutaneous Endoscopic Approach (ICD-10-PCS; CPT 29848; principal; 2021-08-20 07:30)
DX: G56.02 Carpal tunnel syndrome, left upper limb (principal); I10 Essential (primary) hypertension; K21.9 Gastro-esophageal reflux disease without esophagitis; E66.9 Obesity, unspecified
CPT/HCPCS: 29848; J0690; J2250; J2405

== ENCOUNTER 2022-07-07 11:36 | Outpatient (CLI) | payer BC, SELFPAY ==
[2022-07-07 11:15] LABS: Hemoglobin A1C 5.7 % (<5.7)
[2022-07-07 21:22] LABS: Anion Gap 11.5 mmol/L (3-11); BUN 22 mg/dL (7-18); CO2 25.5 mmol/L (21.0-32.0); CREATININE 0.8 mg/dL (0.55-1.02); Calcium 9.4 mg/dL (8.5-10.1); Chloride 105 mmol/L (98-107); Estimated GFR 79.22 (mL/min/1.73m2); Glucose 100 mg/dL (74-106); Potassium 3.9 mmol/L (3.5-5.1); Sodium 142 mmol/L (136-145); TSH (W/Ref FT4) 1.46 uIU/mL (0.36-3.74)
[2022-07-08 10:27] LABS: Hepatitis C Ab w Rflx HCV PCR Negative (Negative)
== END 2022-07-07 11:37 | disposition home or self-care (01) ==
LOC: LBO 11:36
PROVIDERS: PCP Family Medicine; Visit Provider Family Medicine
DX: I10 Essential (primary) hypertension (principal); N18.30 Chronic kidney disease, stage 3 unspecified; E66.9 Obesity, unspecified; Z11.59 Encounter for screening for other viral diseases
CPT/HCPCS: 36415; 80048; 86803; 83036; 84443

== ENCOUNTER → 2022-08-25 01:27 | Outpatient (CLI) | payer BC, SELFPAY ==
--- NOTE | 2022-08-25 | DI.MAMMO_ITS ---
Exam(s) MAMMO SCREENING EXAM: MAMMO SCREENING CLINICAL HISTORY: SCREENING, Z12.31 TECHNIQUE: Mammograms were interpreted according to the usual protocol including computer analysis w [employer] CAD system, tomosynthesis and C-view imaging. COMPARISON: 2016 through 2019 FINDINGS: The breasts are composed of scattered fibroglandular densities, Breast Density category B. No suspicious masses or suspicious microcalcifications are seen. No skin thickening or abnormal axillary lymph nodes are seen. There has been no significant change from prior exams. IMPRESSION: BI-RADS Category 1, Negative mammogram Yearly screening mammography is recommended. Breast Density - Category B, scattered fibroglandular densities. A negative radiographic report should not delay biopsy if a dominant or clinically suspicious mass is present. Up to ten percent of cancers are not identified on mammography. A negative report may reinforce clinical impression. Adenosis and dense breasts may obscure an underlying neoplasm. False positive reports average 6 to 10%. Patient will receive a letter notifying them of these results.
== END ==
PROVIDERS: PCP Family Medicine; Visit Provider Family Medicine
DX: Z12.31 Encounter for screening mammogram for malignant neoplasm of breast (principal)
CPT/HCPCS: 77063; 77067

== ENCOUNTER 2022-10-06 13:18 | Emergency (ER) | payer BC, SELFPAY ==
[2022-10-06 13:28] VITALS: BP 158/78; PULSE 76; RESP 18; TEMP 36.6; O2SAT 96
--- NOTE | 2022-10-06 15:00 | DI.RAD_ITS ---
Exam(s) XR SHOULDER RT COMPLETE 2+V EXAM: XR SHOULDER RT COMPLETE 2+V CLINICAL HISTORY: right shoulder pain, deformity fall. TECHNIQUE: 2D digital imaging was performed of the right shoulder. Three images were obtained. AP, Grashey, and Y views were obtained. COMPARISON: No exams were available for comparison FINDINGS: BONES: No acute fracture is present. No bony destructive lesion is seen. JOINTS: There is an anterior shoulder dislocation. There are degenerative changes seen at both the a cromioclavicular and glenohumeral joints. SOFT TISSUE: Normal. IMPRESSION: There is a right anterior shoulder dislocation. DATA REPOSITORY: RADIATION DOSE DELIVERED:
--- NOTE | 2022-10-06 15:00 | DI.CT_ITS ---
Exam(s) CT HEAD CERVICAL SPINE WO EXAM: CT HEAD CERVICAL SPINE WO CLINICAL HISTORY: fall, [place]. TECHNIQUE: Imaging Protocol: Axial computed tomography images with coronal and sagittal reformatted images were created and reviewed COMPARISON: CT HEAD WITHOUT CONTRAST from 10/20/2011 FINDINGS: CT Head: Ventricles and Extra axial spaces: Normal in size and morphology for the patient's age. Hemorrhage: None. Cerebral parenchyma: There is no evidence of an acute territorial infarct. Midline shift: None. Brainstem/Cerebellum: Normal. Calvarium: Normal. Visualized Paranasal sinuses/Mastoids: Clear. Soft Tissues: Unremarkable. CT Cervical Spine: Bones: No acute fracture or subluxation. There are degenerative changes seen in the cervical spine. Soft Tissues: Unremarkable. Lung Apices: Clear. IMPRESSION: 1. No acute intracranial process. 2. No acute fracture or subluxation in the cervical spine. 3. Findings were discussed with the emergency department at 3:41 p.m. on 10/06/2022. RADIATION DOSE DELIVERED: 1,317.38mGy.cm Total DLP DATA REPOSITORY: All CT scans at this facility are submitted to the National Radiology Data Registry (NRDR) Dose Index Registry (DIR) with the [employer] (ACR). RADIATION OPTIMIZATION: All CT scans at this facility use at least one of these dose optimization te chniques: automated exposure control; mA and/or kV adjustment per patient size (includes targeted exa ms where dose is matched to clinical indication); or iterative reconstruction.
[2022-10-06] MEDS: Acetaminophen 325 MG TAB 650 MG PO (15:06)
[2022-10-06] MEDS: oxyCODONE 5 MG TAB PO (15:07)
--- NOTE | 2022-10-06 15:27 | ED.GENADUL_ITS ---
Discharge Plan Disposition Patient Disposition: Home Condition: Good Discharge Details Clinical Impression: Anterior dislocation of right shoulder Primary Care Provider: Nohemy Dang ED Provider: Jade Powell Home Meds and New Rx's Prescriptions: Continued hydrochlorothiazide 25 mg tablet 25 mg PO DAILY simvastatin 80 MG tablet 80 mg PO DAILY acetaminophen 500 mg tablet 1,000 mg PO Q8H PRN (Reason: pain) Qty: 90 6RF lisinopril 5 mg tablet 5 mg PO DAILY doxepin 50 mg capsule 50 mg PO QHS Discharge Instructions Instructions: Shoulder Dislocation (ED) Additional Instructions: You suffered an anterior dislocation of right shoulder today. This is now been reduced. As we discussed, please encourage rest, ice, elevation. Tylenol and ibuprofen as needed for discomfort. You may find sleeping in a more seated position will help with discomfort. Please continue with sling until evaluated by orthopedics. As discussed, please do not do any overhead activities, avoid any lifting. However, you may work on some passive range of motion as we discussed to help prevent frozen shoulder. Please call orthopedics tomorrow to schedule follow-up appointment. If you develop any new or worsening symptoms please seek care urgently once again. Stand Alone Forms: Work Release Referrals: Gunnar Purvis MD [ [facility] STAFF PHYSICIAN] - Discharge Data Discharge Date/Time-TO BE ENTERED AT DEPARTURE: 10/06/22 18:22 Medical Decision Making <ERICA Schwartz - Last Filed: 10/08/22 12:03> Patient with anterior shoulder dislocation, negative CT head and cervical spine, I attempted Diaz technique but was unsuccessful Will initiate IV and transfer care to Jade Cruz PA-C pending reduction Patient is alert and oriented, very appropriate and actually tolerated attempted reduction without any incident Medical Records Medical records reviewed: Yes I reviewed the patient's medical records. <ERICA Tom - Last Filed: 10/20/22 17:22> Patient with anterior shoulder dislocation, negative CT head and cervical spine, I attempted Diaz technique but was unsuccessful Will initiate IV and transfer care to Jade Cruz PA-C pending reduction Patient is alert and oriented, very appropriate and actually tolerated attempted reduction without any incident Care transition to myself from Sindy Rocha PA-C. Please see her initial note regarding history, presentation and exam. In brief, patient is a pleasant 72-year-old [id number] female presenting with right shoulder anterior dislocation after falling while walking her dog. Diaz technique was attempted and unsuccessful despite patient tolerating it quite well. I reevaluated the patient. She is neurovascularly intact with no evidence of axillary nerve damage. Patient I discussed her/benefits as well as expected procedural steps associated with traction reduction. To help with anxiety and muscle spasm, patient was given Valium. This did help initially but this shoulder seem to be subluxing over the glenoid. We then repositioned the patient with her prone to allow for a weighted and scapular manipulation technique. She tolerated the prone position well. As her pain did increase initially, she was given 50 mcg of fentanyl to help with discomfort and patient was successfully reduced without complications. Neurovascular status after reduction MS remains intact. Sling applied, will obtain postreduction sling. FINDINGS: Bones/joints: Degenerative changes in the acromioclavicular joint and glenohumeral joint. There is no evidence of acute fracture.There is no evidence of malalignment or dislocation. Narrowing of the subacromial space may indicate impingement syndrome Soft tissues: Normal. IMPRESSION: There is no evidence of acute fracture.There is no evidence of malalignment or dislocation. Reduction of the glenohumeral joint Patient is resting comfortably. Sling remains intact. Will refer to orthopedics. Encouraged rest, ice, elevation. Tylenol and ibuprofen as needed for discomfort. Return precautions were discussed. We discussed activities that she should avoid. All of her questions and concerns were addressed and she is in agreement this plan. HPI <ERICA Schwartz - Last Filed: 10/08/22 12:03> General Date/Time Provider Initiated Documentation: 10/06/22 14:41 . HPI Narrative: This 72-year-old female presents with trip and fall while walking dog. She landed with her arm outstretched and did hit her head. She denies any additional injuries or history of anticoagulation. She denies any loss of consciousness. She denies any headache. She denies any neck pain. Her pain is predominantly in her right shoulder and she states she is unable to flex or extend it. Related Data Home Medications Medication Instructions Recorded Confirmed simvastatin 80 mg tablet 80 mg PO DAILY 02/10/17 10/14/22 hydrochlorothiazide 25 mg tablet 25 mg PO DAILY 01/10/19 10/14/22 acetaminophen 500 mg tablet 1,000 mg PO Q8H PRN pain #90 tabs 11/24/19 10/14/22 lisinopril 5 mg tablet 5 mg PO DAILY 05/28/20 10/14/22 doxepin 50 mg capsule 50 mg PO QHS 06/19/22 10/14/22 Previous Rx's Medication Instructions Recorded acetaminophen 500 mg tablet 1,000 mg PO Q8H PRN pain #90 tabs 11/24/19 Allergies Allergy/AdvReac Type Severity Reaction Status Date / Time No Known Drug Allergies Allergy Verified 10/06/22 13:29 General Stated Complaint: Orthopedic ASHLIE: 3 PFSH <ERICA Schwartz - Last Filed: 10/08/22 12:03> All Active Problems Anterior dislocation of right shoulder (Acute) Kidney disease, chronic, stage III (GFR 30-59 ml/min) (Acute) Sleep apnea (Acute) Left carpal tunnel syndrome (Acute) Right carpal tunnel syndrome (Acute) Status post right knee replacement (Acute 06/28/19) Dr. Purvis Status post total left knee replacement (Acute 05/31/19) Dr. Purvis Medical History (Updated 10/06/22 @ 18:05 by ERICA Tom) Chronic insomnia Depression Family history of colon cancer in mother at age 52 GERD (gastroesophageal reflux disease) History of adenomatous polyp of colon History of alcoholism In remission since 1989 HTN (hypertension) Hyperlipidemia Obesity Surgical History Colonoscopy - MAC (02/16/17) Hx of dilation and curettage Hx of knee surgery Right knee Hx of tonsillectomy Hx of tubal ligation Social History Smoking/Tobacco Use Status: Never Smoking risk assessment performed?: Yes Alcohol Intake: former Drug use: Never Substance use type: does not use Current gender identity: female Do you feel safe at home: Yes Do you feel safe in your relationship?: Yes Exam <ERICA Schwartz - Last Filed: 10/08/22 12:03> Const General: cooperative, comfortable and no acute distress HENMT Head: normal to inspection Eyes Pupils: PERRL Neck Other: No midline tenderness Resp Effort & Inspection: normal respiratory effort Auscultation: clear to auscultation bilaterally Cardio Rate: regular rate Rhythm: regular rhythm GI Inspection: normal to inspection Skin General skin exam: no rashes or lesions noted Neuro General: patient alert and patient oriented x3 Extrem Other: Right shoulder with tenderness and swelling, no tenderness to right elbow, abrasion noted, neurovascularly intact, no tenderness to right wrist Course <ERICA Schwartz - Last Filed: 10/08/22 12:03> Vital Signs Vital signs: Vital Signs Temperature 36.6 C 10/06/22 13:28 Pulse 76 10/06/22 13:28 Respiratory Rate 18 10/06/22 13:28 Blood Pressure 158/78 H 10/06/22 13:28 Pulse Oximetry 96 10/06/22 13:28 Temperature 36.6 C 10/06/22 13:28 Temperature Source Temporal Artery Scan 10/06/22 13:28 Pulse 76 10/06/22 13:28 Respiratory Rate 18 10/06/22 13:28 Respiratory Effort Non-Labored 10/06/22 14:51 Blood Pressure 158/78 H 10/06/22 13:28 Pulse Oximetry 96 10/06/22 13:28 Oxygen Delivery Method Room Air 10/06/22 13:28 Oxygen Flow Rate 0 10/06/22 13:28 <ERICA Tom - Last Filed: 10/20/22 17:22> Orthopedic Joint Reduction Joint #1: Time Out Performed: Yes Side: right Joint Reduction Location: shoulder Analgesia: other (50mcg Fentanyl) Shoulder Technique Used (if applicable): traction/counter-traction and scapula manipulation Post-reduction neuro exam: intact and no change Post-reduction vascular: intact and no change Post Reduction X-Ray Obtained: Yes Sign Out <ERICA Schwartz - Last Filed: 10/08/22 12:03> Sign Out Data: Sign Out Comment: pending shoulder reduction, ct head and cspine wnl orthopedic referral Last updated by Sindy Rocha PA at 10/06/22 16:07
[2022-10-06] MEDS: diazePAM 10 MG/2 ML SYR 5 MG IVP ×2 (16:33→16:41)
[2022-10-06] MEDS: fentaNYL 100 MCG/2 ML VIAL (16:55)
--- NOTE | 2022-10-06 17:00 | DI.RAD_ITS ---
Exam(s) XR SHOULDER RT COMP POST REDUC EXAM: XR SHOULDER RT COMP POST REDUC CLINICAL HISTORY: post reduction. TECHNIQUE: 2D digital imaging was performed of the right shoulder. Three images were obtained. AP, Grashey, and Y views were obtained. COMPARISON: CR XR SHOULDER RT COMPLETE 2+V from 10/06/2022 FINDINGS: BONES: No acute fracture is present. No bony destructive lesion is seen. JOINTS: No dislocation present. Degenerative changes are seen at the acromioclavicular and glenohumer al joints. Mild spurring is seen at the lateral acromion. SOFT TISSUE: Normal. IMPRESSION: Successful reduction of the right shoulder dislocation. No acute abnormality is seen. DATA REPOSITORY: RADIATION DOSE DELIVERED:
[2022-10-06 17:17] VITALS: BP 157/83; PULSE 75; RESP 14; O2SAT 95
--- NOTE | 2022-10-06 18:10 | DI.VRAD_ITS ---
PROCEDURE INFORMATION: Exam: XR Right Shoulder Exam date and time: 10/06/2022 5:53 PM Age: 72 years old Clinical indication: Other: Post reduction TECHNIQUE: Imaging protocol: Radiologic exam of the Right shoulder. Views: 2 or more views. COMPARISON: CR XR SHOULDER RT COMPLETE 2+V 10/06/2022 3:31 PM FINDINGS: Bones/joints: Degenerative changes in the acromioclavicular joint and glenohumeral joint. There is no evidence of acute fracture.There is no evidence of malalignment or dislocation. Narrowing of the subacromial space may indicate impingement syndrome Soft tissues: Normal. IMPRESSION: There is no evidence of acute fracture.There is no evidence of malalignment or dislocation. Reduction of the glenohumeral joint Dictated and Authenticated by: Sho Lara MD. Ordering:AMADOU Hansen MD
[2022-10-06 18:21] VITALS: BP 150/81; PULSE 78; RESP 18; O2SAT 97
== END 2022-10-06 18:22 | disposition home or self-care (01) ==
PROVIDERS: Emergency Provider Physician Assistant; PCP Family Medicine
DX: S43.004A Unspecified dislocation of right shoulder joint, initial encounter (principal); I10 Essential (primary) hypertension; W01.10XA Fall on same level from slipping, tripping and stumbling with subsequent striking against unspecified object, initial encounter; Y93.K1 Activity, walking an animal
CPT/HCPCS: 23650; 73030; 99284; 70450; 72125; J3010; J3360

== ENCOUNTER 2023-02-16 07:01 | Day surgery (SDC) | payer BC, SELFPAY ==
--- NOTE | 2023-02-15 14:29 | W.ANESPRE ---
General Info Date of Service Date Performed: 02/16/23 Height: 5 ft 1 in Weight: 114.475 kg Body Mass Index (BMI): 47.7 Surgical Procedure: Operation Date: 02/16/23 08:20 Proposed Procedure Side Surgeon felix Osman MD Meds Allergies and Home Medications Allergies Allergy/AdvReac Type Severity Reaction Status Date / Time No Known Drug Allergies Allergy Verified 02/16/23 07:17 Home Medication Medication Instructions Recorded simvastatin 80 mg tablet 80 mg PO DAILY 02/10/17 hydrochlorothiazide 25 mg tablet 25 mg PO DAILY 01/10/19 acetaminophen 500 mg tablet 1,000 mg PO Q8H PRN pain #90 tabs 11/24/19 lisinopril 5 mg tablet 5 mg PO DAILY 05/28/20 doxepin 50 mg capsule 50 mg PO QHS 06/19/22 Current Visit Medications: Current Medications Generic Name Dose Route Start Last Admin Trade Name Freq PRN Reason Stop Dose Admin Ringer's Solution 1,000 mls @ 80 mls/hr 02/16/23 06:00 IV 02/16/23 23:59 INFUSION CINTHIA IV Miscellaneous Supplies 1 each 02/16/23 06:00 Iv Access IV 02/16/23 23:59 DIRECTED CINTHIA Sodium Chloride 0 ml 02/16/23 06:00 Normal Saline Flush 10 Ml Syr IV 02/16/23 23:59 PRN PRN Sodium Chloride 0 ml 02/16/23 06:00 Normal Saline 10 Ml Vial IJ 02/16/23 23:59 DIRECTED PRN Sterile Water 0 ml 02/16/23 06:00 Water,Injection,Sterile 10 Ml Vial IJ 02/16/23 23:59 DIRECTED PRN PFSH Active Problems Active Problems: Problem Status Onset Code History of adenomatous polyp of colon ~02/16/17 Z86.010 Traumatic tear of right rotator cuff S46.011A Kidney disease, chronic, stage III (GFR 30-59 ml/min) N18.30 Sleep apnea G47.30 Left carpal tunnel syndrome G56.02 Right carpal tunnel syndrome G56.01 Status post right knee replacement 06/28/19 Z96.651 Status post total left knee replacement 05/31/19 Z96.652 Medical History Medical History Chronic insomnia Depression Family history of colon cancer in mother at age 52 GERD (gastroesophageal reflux disease) History of alcoholism In remission since 1989 HTN (hypertension) Hyperlipidemia Obesity Surgical History Surgical History (Updated 02/16/23 @ 07:19 by Harika Aly RN) Colonoscopy - MAC (02/16/17) History of carpal tunnel release of both wrists Hx of dilation and curettage Hx of knee surgery Right knee Hx of tonsillectomy Hx of tubal ligation Tobacco Smoking/Tobacco Use Status: Never Alcohol Alcohol Intake: former Substance Use Substance use: Never Substance use type: does not use Vital Signs and Lab Results Lab Results Blood Type / Crossmatch: No Data to Display Complete Blood Count: No Data to Display Complete Metabolic Panel: No Data to Display Liver Function Panel: No Data to Display Coagulation Panel: No Data to Display Cardiac Panel: No Data to Display Arterial Blood Gas: No Data to Display Venous Blood Gas: No Data to Display Pancreas Panel: No Data to Display Thyroid Panel: No Data to Display Infectious Disease: No Data to Display Blood Cultures: No Data to Display Toxicology Panel: No Data to Display Anesthesia Assessment and Plan Anesthesia History Personal History: No History of Anesthesia Complications Family History: No Family History of Anesthesia Complications Exercise Tolerance Exercise Tolerance: Metabolic Equivalents>4 Cardiac & Pulmonary Exam Cardiac Exam: Normal S1/S2 Heart Sounds Pulmonary Exam: Clear Bilateral Breath Sounds Implantable Cardiac Device Does patient have a Pacemaker or an ICD?: No Airway Exam Known Difficult Airway: No Mallampati Class: 3 Mouth Opening: Narrow (< 3cm) Thyromental Distance: Less than 3 cm Neck Range of Motion: Full ROM Neck Circumference: Thick Teeth Condition: Normal Dentition and Removable Dentures/Plates Upper ASA Classification ASA Score: ASA 3 Emergency Case?: No NPO Status NPO Status: NPO Clears >2 hours, Solids >8 hours Anesthesia Plan Resuscitation Status: Full Code Anesthesia Technique: MAC Anesthesia Airway Planned: Natural Airway Monitors Used: Standard Monitors Preoperative Comments:: 71 yo female for colo. Sig PMHx: GERD (as need protonix, we?ll controlled), MEAGAN (cpap), HTN (HCTZ/Lisinopril), Previous Anes: - ECTR, ketamine/midaz, prop, natural airway, no issues.
--- NOTE | 2023-02-15 21:04 | W.PM.DSUDISC ---
Date of service: 02/16/23 Time of Service: 09:16 Discharge Plan Disposition Patient Disposition: Home Condition: Good Discharge Details Reason For Visit: Colonoscopy Attending Provider: Davy Osman Primary Care Provider: Nohemy Dang Home Meds and New Rx's Prescriptions: Continued hydrochlorothiazide 25 mg tablet 25 mg PO DAILY simvastatin 80 MG tablet 80 mg PO DAILY acetaminophen 500 mg tablet 1,000 mg PO Q8H PRN (Reason: pain) Qty: 90 6RF lisinopril 5 mg tablet 5 mg PO DAILY doxepin 50 mg capsule 50 mg PO QHS Discontinued polyethylene glycol 3350 17 gram/dose powder 238 g PO ONCE Qty: 238 0RF Rx Instructions: take per colonoscopy instructions bisacodyl [Dulcolax (bisacodyl)] 5 mg tablet,delayed release (DR/EC) 5 mg PO ONCE Qty: 4 0RF Rx Instructions: take per colonoscopy instructions Discharge Instructions Additional Instructions: María, we were able to complete the colonoscopy today without any problems at all. The quality of your prep was excellent. I did not see any evidence of any abnormalities. Based on your family history of colon cancer, I do think you should consider another screening colonoscopy every 5 years. 1. If tolerated, consume a soft, low fiber diet for 1-2 days. 2[address] Do not drive, drink alcohol, operate machinery, make critical decisions, or do activities that require coordination or balance for 24 hours. 3. Because air was put into your colon during the procedure, expelling air from your rectum (passing gas or farting) is normal. 4. You may not have a bowel movement for 1-3 days because of the colonoscopy prep. This is normal. 5. Go directly to the emergency room if you notice any of the following: Develop chills (warm to touch), or if you have a thermometer and your temperature is above 101 Difficulty breathing or difficultly swallowing Persistent vomiting Severe abdominal pain, other than gas cramps Severe chest pain Black, tarry stools Any bleeding ? exceeding one tablespoon 6. Call your physician if the site where your intravenous was started becomes red, swollen, painful, and warm to touch. 7. Your physician has reviewed your pre-procedure medications. Please continue to take those medications as previously ordered. You will be given specific information/education regarding any changes to your medications before leaving. Activity:: Activity as Tolerated Diet:: As Tolerated Discharge Orders Discharge Orders: Discharge Order (Routine); Ordered 02/15/23 Ordered By: Davy Osman DS: Diagnosis Discharge Diagnosis (1) Screening for colon cancer: Status: Acute Asessment and Plan: Negative screening colonoscopy, based on your family history, I recommend another screening in 5 years
--- NOTE | 2023-02-15 21:06 | COLE_ITS ---
Date of service: 02/16/23 Time of Service: 09:17 Colonoscopy Report Date of procedure: 02/16/23 Pre-op diagnosis general: Screening colonoscopy Post-op diagnosis procedure note: other (Negative screening colonoscopy) Procedure: Colonoscopy Surgeon: Davy Osman Anesthesia Type: General:No Airway Estimated blood loss (mL): 0 Pathology: none sent Complications: None Disposition: same day Indications: María is a 73 year old woman with a first degree relative with colon cancer who is here for a screening colonoscopy Prep: Miralax/Dulcolax Procedure Start Time: 08:48 Procedure End Time: 09:05 Retraction Time: 10 Findings: Normal colonoscopy Procedure Description: After the induction of monitored anesthetic care, and with the patient in left lateral decubitus position, I began by performing an external anorectal exam.? P erineum and skin were normal, as was the anal verge.? There was no evidence of external hemorrhoids.? Next, I performed a digital rectal exam.? I did not appreciate any abnormal findings.? Next, I advanced a colonoscope into the rectal vault.? I performed retroflexion.? This was normal.? Using insufflation, I then advanced the colonoscope beyond the rectal folds and into the sigmoid colon before advancing towards the cecum.? The quality of the prep was excellent.? The scope was noted to be in the cecum by identification of the ileocecal valve and appendiceal orifice.? I then began withdrawing the colonoscope using repeated irrigation as necessary for full evaluation of the colonic mucosa. ?Once the scope was withdrawn to the level of the rectum, great care was taken to examine portions of the rectal folds.? I did not see any evidence of tumors or polyps throughout the entire colon. Finally, the scope was withdrawn and the patient was brought to the same-day surgery recovery unit as the anesthetic wore off. ?The findings and instructions were shared with the patient prior to discharge.
[2023-02-16 07:05] VITALS: BP 143/88; PULSE 80; RESP 18; TEMP 36.3; O2SAT 96
[2023-02-16] MEDS: Lactated Ringers 1,000 ML 80 ML IV (07:50)
[2023-02-16 08:30] VITALS: BMI 47.7
[2023-02-16 09:07] VITALS: BP 104/63; PULSE 75; RESP 17; TEMP 36.3; O2SAT 95
--- NOTE | 2023-02-16 09:18 | W.ANESPOSTOP ---
Postoperative Evaluation Date, Time and Location Date Performed: 02/16/23 Time Performed: 09:18 Patient Location: Day Surgery Unit Vital Signs Most Recent Imported Vital Signs: Most Recent Vital Signs Temp Pulse Resp BP Pulse Ox 36.3 C L 75 17 104/63 95 02/16/23 09:07 02/16/23 09:07 02/16/23 09:07 02/16/23 09:07 02/16/23 09:07 Pain Score Most Recent Pain Score: Most Recent Pain Score Pain Level 0 02/16/23 09:07 Assessment Mental Status: Awake (Alert & Oriented to Patient Baseline) Airway and Respiratory Function: Patent airway with normal (patient baseline) respiratory exam Cardiovascular Function: Hemodynamically Stable Hydration Status: Adequately Hydrated Nausea & Vomiting: No Nausea or Vomiting Pain: Pt. Denies Any Pain Peripheral Nerve Block: Patient did not receive a nerve block
[2023-02-16 09:40] VITALS: BP 119/79; PULSE 85; RESP 17; TEMP 36.4; O2SAT 95
== END 2023-02-16 09:53 | disposition home or self-care (01) ==
PROVIDERS: PCP Family Medicine; Visit Provider Surgery
PROC: 0DJD8ZZ Inspection of Lower Intestinal Tract, Via Natural or Artificial Opening Endoscopic (ICD-10-PCS; CPT 45378; principal; 2023-02-16 08:15)
DX: Z12.11 Encounter for screening for malignant neoplasm of colon (principal); Z80.0 Family history of malignant neoplasm of digestive organs
CPT/HCPCS: G0105

== ENCOUNTER 2023-07-13 15:21 | Outpatient (REF) | payer BC, SELFPAY ==
[2023-07-13 15:48] LABS: BUN 21 mg/dL (7-18); CREATININE 1.1 mg/dL (0.55-1.02); Calcium 9.2 mg/dL (8.5-10.1); Chloride 101 mmol/L (98-107); Estimated GFR 53.72 (mL/min/1.73m2); Glucose 106 mg/dL (74-106); Potassium 3.7 mmol/L (3.5-5.1); Sodium 136 mmol/L (136-145)
[2023-07-13 16:26] LABS: Hemoglobin A1C 5.7 % (<5.7)
== END 2023-07-13 15:22 | disposition home or self-care (01) ==
LOC: NCHCN 15:21
PROVIDERS: PCP Family Medicine; Visit Provider Family Medicine
DX: I10 Essential (primary) hypertension (principal); R73.03 Prediabetes
CPT/HCPCS: 80048; 83036

== ENCOUNTER 2024-01-18 14:01 | Outpatient (REF) | payer BC, SELFPAY ==
[2024-01-18 13:50] LABS: Anion Gap 11.2 mmol/L (3-11); BUN 21 mg/dL (7-18); CO2 27.8 mmol/L (21.0-32.0); Calcium 9.3 mg/dL (8.5-10.1); Calculated LDL 54 mg/dL (<100); Chloride 103 mmol/L (98-107); Cholesterol 140 mg/dL (<200); Estimated GFR 59.86 (mL/min/1.73m2); Glucose 87 mg/dL (74-106); HDL Cholesterol 62 mg/dL (40-60); Sodium 142 mmol/L (136-145); Triglyceride 124 mg/dL (<150)
[2024-01-18 14:01] LABS: Hemoglobin A1C 5.6 % (<5.7)
== END 2024-01-18 14:02 | disposition home or self-care (01) ==
LOC: NCHCN 14:01
PROVIDERS: PCP Family Medicine; Visit Provider Family Medicine
DX: I10 Essential (primary) hypertension (principal); R73.03 Prediabetes
CPT/HCPCS: 80048; 80061; 83036

== ENCOUNTER 2024-08-22 01:12 | Outpatient (CLI) | payer BC, SELFPAY ==
--- NOTE | 2024-08-22 | DI.DEXA_ITS ---
Exam(s) XR DEXA BONE DENSITY W/WO YECENIA EXAM: XR DEXA BONE DENSITY W/WO YECENIA CLINICAL HISTORY: SCREENING FOR OSTEOPOROSIS, ASYMPTOMATIC MENOPAUSAL STATE, Z78.0 TECHNIQUE: COMPARISON: DX DEXA BONE DENSITY WITH YECENIA from 02/23/2018 FINDINGS: Lateral Spine Image: Unremarkable. No compression deformities identified. Left hip: Total T-Score: -0.2. This compares to 0.5 on the prior examination. Total Z-Score: 1.4 T- and Z-scores: No evidence of osteoporosis. Lumbar Spine: Total T-Score: 2.4. This compares to a 1.9 on the prior examination. Total Z-Score: 4.7 T- and Z-scores: Within normal limits. IMPRESSION: No evidence of osteoporosis.
== END 2024-08-22 01:32 ==
LOC: DI 01:12
PROVIDERS: PCP Family Medicine; Visit Provider Family Medicine
DX: Z78.0 Asymptomatic menopausal state (principal); Z13.820 Encounter for screening for osteoporosis
CPT/HCPCS: 77080

== ENCOUNTER 2024-08-29 01:33 | Outpatient (CLI) | payer BC, SELFPAY ==
--- NOTE | 2024-08-29 | DI.MAMMO_ITS ---
Exam(s) MAMMO SCREENING EXAM: MAMMO SCREENING CLINICAL HISTORY: Screening, Z12.31 TECHNIQUE: Mammograms were interpreted according to the usual protocol including computer analysis w [employer] CAD system, tomosynthesis and C-view imaging. COMPARISON: No exams were available for comparison FINDINGS: The breasts are composed of scattered fibroglandular densities, Breast Density category B. No suspicious masses or suspicious microcalcifications are seen. Skin mole again noted on the left b reast. No skin thickening or abnormal axillary lymph nodes are seen. There has been no significant change from prior exams. IMPRESSION: BI-RADS Category 1, Negative mammogram Yearly screening mammography is recommended. Breast Density - Category B, scattered fibroglandular densities. A negative radiographic report should not delay biopsy if a dominant or clinically suspicious mass is present. Up to ten percent of cancers are not identified on mammography. A negative report may reinforce clinical impression. Adenosis and dense breasts may obscure an underlying neoplasm. False positive reports average 6 to 10%. Patient will receive a letter notifying them of these results.
== END 2024-08-29 01:53 ==
LOC: DI 01:33
PROVIDERS: PCP Family Medicine; Visit Provider Family Medicine
DX: Z12.31 Encounter for screening mammogram for malignant neoplasm of breast (principal); R92.323 Mammographic fibroglandular density, bilateral breasts
CPT/HCPCS: 77063; 77067

== ENCOUNTER 2024-12-26 15:55 | Outpatient (REF) | payer BC, SELFPAY ==
[2024-12-26 22:02] LABS: ALT 25 U/L (14-59); AST 20 U/L (15-37); Albumin 3.8 g/dL (3.4-5.0); Alkaline Phosphatase 87 U/L (46-116); Anion Gap 10.3 mmol/L (3-11); BUN 18 mg/dL (7-18); Bilirubin, Total 0.6 mg/dL (0.2-1.0); CO2 24.7 mmol/L (21.0-32.0); CREATININE 0.9 mg/dL (0.55-1.02); Calcium 9.6 mg/dL (8.5-10.1); Chloride 103 mmol/L (98-107); Estimated GFR 67.92 (mL/min/1.73m2); Glucose 89 mg/dL (74-106); Potassium 4.2 mmol/L (3.5-5.1); Sodium 138 mmol/L (136-145); Total Protein 6.8 g/dL (6.4-8.2)
[2024-12-26 22:05] LABS: Hemoglobin A1C 5.3 % (<5.7)
== END 2024-12-26 15:56 | disposition home or self-care (01) ==
LOC: NCHCN 15:55
PROVIDERS: PCP Family Medicine; Visit Provider Family Medicine
DX: R73.03 Prediabetes (principal)
CPT/HCPCS: 80053; 83036